=== PATIENT | female | born 1980 | race African-American/Black ===

== ENCOUNTER 2017-03-18 08:41 | Emergency (ER) | payer OTHER ==
[~2017-03-18] VITALS: Ht 165.1 cm; Wt 95.3 kg
--- NOTE | 2017-03-18 09:24 | RAD ---
2 view CXR: Clinical indications: Cough for one month especially at night when lying down. Cough is productive with trace of blood for one week. History of diabetes and hypertension.. Findings: Right lower lobe lung infiltrate is seen. The left lung field is clear. No pleural effusion or pneumothorax is seen. The heart size, pulmonary vasculature, mediastinum and both dennys are stable from October 18, 2011. The osseous structures appear intact. Impression: Right lower lobe pneumonia..
[2017-03-18] MEDS ORDERED: IV NORMAL SALINE 1000ML BAG 1,000 ML IV ONE (09:30)
[2017-03-18] MEDS ORDERED: LABETALOL HCL 200 MG TABLET PO STA (09:30)
[2017-03-18] MEDS ORDERED: ACETAMINOPHEN 500 MG TABLET PO ONE (09:30)
[2017-03-18] MEDS ORDERED: BENZONATATE 100 MG CAPSULE. PO STA (09:30)
[2017-03-18] MEDS ORDERED: AZITHRMYCN 500MG IVPB FOR OMNI 250 ML IV ONE (09:30)
[2017-03-18] MEDS ORDERED: IPRATRPIUM/ALBUTEROL 0.5/2.5MG 3 ML NEBU. NEB ONE (09:30)
[2017-03-18] MEDS ORDERED: LABETALOL 20 MG/4 ML DISP.SYRIN. IVP ONE (09:30)
--- NOTE | 2017-03-18 09:51 | PHYS DOC ---
Past Medical History Past Medical History: Diabetes-Type II, Hypertension Past Surgical History: , Tubal ligation, Other Additional Past Surgical Histo: rt ankle sx, x3 Alcohol Use: None Additional Information: "I did all that in my teens. I don't do anything anymore." Drug Use: None Adult General Chief Complaint Chief Complaint: COUGH HPI HPI This is a 36 year old female patient with history of hypertension and diabetes type 2 who presents today with a productive cough with yellow sputum for one month, nasal congestion, bilateral mild ear pain which began three days ago. Patient denies any history of smoking. She states she is supposed to take labetalol for her blood pressure but stopped taking it 2 or 3 days ago because of the cold symptoms. Patient states she's been taking [id number] decongestants including NyQuil. Patient denies any fever. Denies any chest pain. Review of Systems Review of Systems Constitutional: See history of present illness Eyes: Denies change in visual acuity, redness, or eye pain [] HENT: Nasal congestion bilateral ear pain Respiratory: Productive cough Cardiovascular: No additional information not addressed in HPI [] GI: Denies abdominal pain, nausea, vomiting, bloody stools or diarrhea [] : Denies dysuria or hematuria [] Musculoskeletal: Denies back pain or joint pain [] Integument: Denies rash or skin lesions [] Neurologic: Denies headache, focal weakness or sensory changes [] Endocrine: Denies polyuria or polydipsia [] Current Medications Current Medications Current Medications Medications (Trade) Dose Ordered Sig/Irma Start Time Stop Time Status Last Admin Dose Admin Acetaminophen (Tylenol) 1,000 mg 1X ONCE 03/18/17 09:30 03/18/17 09:44 DC 03/18/17 10:25 1,000 MG Albuterol/ Ipratropium (Duoneb) 3 ml 1X ONCE 03/18/17 09:30 03/18/17 09:44 DC 03/18/17 10:08 3 ML Azithromycin (Zithromax 500mg Ivpb For Omni) 250 ml @ 250 mls/hr 1X ONCE 03/18/17 09:30 03/18/17 10:29 DC 03/18/17 11:12 250 MLS/HR Benzonatate (Tessalon Perle) 100 mg 1X STAT 03/18/17 09:30 03/18/17 09:44 DC 03/18/17 10:25 100 MG Ceftriaxone Sodium 50 ml @ 100 mls/hr 1X ONCE 03/18/17 09:30 03/18/17 09:59 DC 03/18/17 10:24 100 MLS/HR Labetalol HCl (Normodyne) 40 mg 1X ONCE 03/18/17 09:30 03/18/17 09:44 DC 03/18/17 10:37 40 MG Labetalol HCl 200 mg 200 mg 1X STAT 03/18/17 09:30 03/18/17 09:44 DC 03/18/17 10:04 200 MG Ondansetron HCl (Zofran) 4 mg STK-MED ONCE 03/18/17 11:31 03/18/17 11:32 DC Potassium Chloride (KCl Oral Soln) 40 meq 1X ONCE 03/18/17 11:00 03/18/17 11:01 DC 03/18/17 11:22 40 MEQ Potassium Chloride (Klor-Con) 40 meq 1X ONCE 03/18/17 11:00 03/18/17 11:01 DC 03/18/17 11:21 40 MEQ Sodium Chloride (Iv Sodium Chloride 0.9% 1000ml Bag) 1,000 ml @ 1,000 mls/hr 1X ONCE 03/18/17 09:30 03/18/17 10:29 DC 03/18/17 10:22 1,000 MLS/HR Allergies Allergies Allergies Coded Allergies Type Severity Reaction Last Updated Verified No Known Drug Allergies 09/05/14 No Physical Exam Physical Exam Constitutional: Well developed, well nourished, no acute distress, non-toxic appearance. [] HENT: Normocephalic, atraumatic, bilateral external ears normal, oropharynx moist, no oral exudates, nose normal. [] Eyes: PERRLA, EOMI, conjunctiva normal, no discharge. [] Neck: Normal range of motion, no tenderness, supple, no stridor. [] Cardiovascular:Heart rate regular rhythm, no murmur [] Lungs & Thorax: diminished breath sounds to bilateral posterior lung bases Abdomen: Bowel sounds normal, soft, no tenderness, no masses, no pulsatile masses. [] Skin: Warm, dry, no erythema, no rash. [] Back: No tenderness, no CVA tenderness. [] Extremities: No tenderness, no cyanosis, no clubbing, ROM intact, no edema. [] Neurologic: Alert and oriented X 3, normal motor function, normal sensory function, no focal deficits noted. [] Psychologic: Affect normal, judgement normal, mood normal. [] Current Patient Data Vital Signs Vital Signs Date Time Temp Pulse Resp B/P Pulse Ox O2 Delivery O2 Flow Rate FiO2 03/18/17 10:37 113 202/121 03/18/17 09:55 95 Room Air 03/18/17 08:50 98.5 20 98.5 Lab Values Laboratory Tests Test 03/18/17 10:10 White Blood Count 14.0x10^3/uL (4.0-11.0) H Red Blood Count 4.83x10^6/uL (3.50-5.40) Hemoglobin 12.7g/dL (12.0-15.5) Hematocrit 38.5% (36.0-47.0) Mean Corpuscular Volume 80fL (79-100) Mean Corpuscular Hemoglobin 26pg (25-35) Mean Corpuscular Hemoglobin Concent 33g/dL (31-37) Red Cell Distribution Width 14.2% (11.5-14.5) Platelet Count 257x10^3/uL (140-400) Neutrophils (%) (Auto) 92% (31-73) H Lymphocytes (%) (Auto) 4% (24-48) L Monocytes (%) (Auto) 4% (0-9) Eosinophils (%) (Auto) 0% (0-3) Basophils (%) (Auto) 0% (0-3) Neutrophils # (Auto) 12.9x10^3uL (1.8-7.7) H Lymphocytes # (Auto) 0.5x10^3/uL (1.0-4.8) L Monocytes # (Auto) 0.5x10^3/uL (0.0-1.1) Eosinophils # (Auto) 0.0x10^3/uL (0.0-0.7) Basophils # (Auto) 0.0x10^3/uL (0.0-0.2) Segmented Neutrophils % 91% (35-66) H Lymphocytes % 4% (24-48) L Monocytes % 4% (0-10) Eosinophils % 1% (0-5) Platelet Estimate Adequate (ADEQUATE) Microcytosis Present Sodium Level 139mmol/L (136-145) Potassium Level 2.9mmol/L (3.5-5.1) *L Chloride Level 100mmol/L (98-107) Carbon Dioxide Level 30mmol/L (21-32) Anion Gap 9 (6-14) Blood Urea Nitrogen 20mg/dL (7-20) Creatinine 1.3mg/dL (0.6-1.0) H Estimated GFR (Cockcroft-Gault) 56.1 Glucose Level 175mg/dL (70-99) H Calcium Level 8.9mg/dL (8.5-10.1) Magnesium Level 1.5mg/dL (1.8-2.4) L Laboratory Tests 03/18/17 10:10 Laboratory Tests 03/18/17 10:10 EKG EKG [] Radiology/Procedures Radiology/Procedures []PROCEDURE: CHEST PA & LATERAL 2 view CXR: Clinical indications: Cough for one month especially at night when lying down. Cough is productive with trace of blood for one week. History of diabetes and hypertension.. Findings: Right lower lobe lung infiltrate is seen. The left lung field is clear. No pleural effusion or pneumothorax is seen. The heart size, pulmonary vasculature, mediastinum and both dennys are stable from October 18, 2011. The osseous structures appear intact. Impression: Right lower lobe pneumonia.. DICTATED and SIGNED BY: SAL LASSITER MD DATE: 03/18/17919 CC: KANDY HARRIS APRN ~ Course & Med Decision Making Course & Med Decision Making Pertinent Labs and Imaging studies reviewed. (See chart for details) Patient is in the ED with a productive cough, nasal congestion, bilateral ear pain. She states she has history of hypertension. The blood pressure in the ED is 222/133 with a heart rate in the 110s. She states she is supposed to be taking labetalol but she stopped taking 2-3 days ago. She was given labetalol 20 mg IV push followed by 200 mg by mouth. Chest x-ray positive for right lower lobe pneumonia. Patient is not hypoxic. Her O2 sats are at 98% on room air. CBC with a WBC of 14.0, BMP with potassium of 2.9 and creatinine of 1.3. Magnesium 1.5. Patient was given 40 mEq of liquid potassium and 40 mEq of tablet potassium. She was given IV fluids. She was also given a DuoNeb treatment in the ED. She feels better. She is afebrile. Her blood pressures come down to 160s over 80s. She was discharged with azithromycin, potassium, and Tussionex. She was encouraged to follow-up with her PCP in the course of next week. She was provided proper return precautions and discharged in stable condition. Dr. Bravo assisted in the care of patient. Salvatore Disclaimer Salvatore Disclaimer This electronic medical record was generated, in whole or in part, using a voice recognition dictation system. Departure Departure Impression: Primary Impression: Right lower lobe pneumonia Additional Impressions: Accelerated hypertension Hypokalemia Disposition: HOME, SELF-CARE Condition: STABLE Patient Instructions: Hypertension, Hypokalemia, Pneumonia, Adult Additional Instructions: Your chest x-ray shows a have community-acquired pneumonia. We gave you the first dose of antibiotic in the ED. Please ensure you complete the rest of the antibiotics. You also have low potassium. This could for multiple things including vomiting. Take the prescribed potassium tablets as written. Increase your dietary potassium intake through foods like bananas, sweet potatoes. Increase your fluid intake. Follow-up with your doctor next week. Come back to the ED symptoms worsen. Take your blood pressure medicines as prescribed. Scripts Potassium Chloride 20 Meq Tablet.er20 Meq PO DAILY #3 TAB.SR Prov:KANDY HARRIS APRN 03/18/17 Albuterol Sulfate (Proair Respiclick)90 Mcg Aer.pow.ba1 Puff IH PRN Q6HRS PRN SHORTNESS OF BREATH #1 INHALER Prov:KANDY HARRIS APRN 03/18/17 Guaifenesin/Codeine Phosphate (Codeine-Guaifen 10-100 mg/5 ml)120 Ml Liquid5 Ml PO BID PRN COUGH #80 LIQUID Prov:KANDY HARRIS APRN 03/18/17 Azithromycin (Zithromax)250 Mg [id number] Mg PO DAILY ANTI-BIOTIC #4 TAB Ref 0 Prov:KANDY HARRIS APRN 03/18/17 Problem Qualifiers Primary Impression: Right lower lobe pneumonia Pneumonia type: due to unspecified organism Qualified Code: J18.1 - Lobar pneumonia, unspecified organism KANDY HARRIS APRN Mar 18, 2017 09:51
[2017-03-18 10:32] LABS: BASO % 0 % (0-3); EOS % 0 % (0-3); HEMATOCRIT 38.5 % (36.0-47.0); HEMOGLOBIN 12.7 g/dL (12.0-15.5); LYMPH # 0.5 x10^3/uL (1.0-4.8); LYMPH % 4 % (24-48); MEAN CORPUSCULAR HEMOGLOBIN 26 pg (25-35); MEAN CORPUSCULAR HGB CONC 33 g/dL (31-37); MEAN CORPUSCULAR VOLUME 80 fL (79-100); MONO % 4 % (0-9); NEUT % 92 % (31-73); PLATELET COUNT 257 x10^3/uL (140-400); RED BLOOD COUNT 4.83 x10^6/uL (3.50-5.40); RED CELL DISTRIBUTION WIDTH 14.2 % (11.5-14.5)
[2017-03-18 10:37] VITALS: BP 202/121
[2017-03-18 10:49] LABS: CALCIUM 8.9 mg/dL (8.5-10.1); CREATININE 1.3 mg/dL (0.6-1.0); GFR 56.1
[2017-03-18 10:51] LABS: POTASSIUM 2.9 mmol/L (3.5-5.1)
[2017-03-18] MEDS ORDERED: POTASSIUM CHLORIDE 20 MEQ/15 ML ORAL LIQUID. PO ONE (11:00)
[2017-03-18] MEDS ORDERED: POTASSIUM CHLORIDE 20 MEQ TABLET.ER. PO ONE (11:00)
[2017-03-18] MEDS ORDERED: ONDANSETRON PF 4 MG/2 ML VIAL. IV ONE (11:30)
[2017-03-18] MEDS ORDERED: ONDANSETRON PF 4 MG/2 ML VIAL. ONE (11:31)
[2017-03-18 12:39] LABS: % EOS 1 % (0-5); MICROCYTOSIS PRESENT; PLT ESTIMATE ADEQUATE (ADEQUATE)
[2017-03-18] MEDS ORDERED: GUAI120L35 PO (13:05)
[2017-03-18] MEDS ORDERED: PROAIR RESPICL90 MCG IH (13:05)
[2017-03-18] MEDS ORDERED: POTA20TA82 PO (13:05)
[2017-03-18] MEDS ORDERED: AZIT250T PO (13:05)
== END 2017-03-18 13:17 | disposition home or self-care (01) ==
LOC: ER 08:41
DX: J18.1 Lobar pneumonia, unspecified organism (principal); H92.03 Otalgia, bilateral; E87.6 Hypokalemia; E11.9 Type 2 diabetes mellitus without complications; I10 Essential (primary) hypertension; Z98.51 Tubal ligation status
CPT/HCPCS: 36415; 71020; 80048; 83735; 85007; 85027; 87040; 94250; 94640; 96361; 96365; 96366; 96375; 99285; J0456; J0690; J2405; J3490; J7030; J7620

== ENCOUNTER 2017-03-19 17:28 | Inpatient (IN) | payer OTHER ==
[~2017-03-19] VITALS: Ht 167.6 cm; Wt 100.5 kg
[~2017-03-19 17:28] MED LIST: AZIT250T PO; GUAI120L35 PO; POTA20TA82 PO; PROAIR RESPICL90 MCG IH
[2017-03-19] MEDS ORDERED: IV NORMAL SALINE 1000ML BAG 1,000 ML IV SCH (17:51)
[2017-03-19] MEDS ORDERED: IPRATRPIUM/ALBUTEROL 0.5/2.5MG 3 ML NEBU. NEB ONE (18:00)
[2017-03-19 18:24] LABS: BASO % 0 % (0-3); EOS % 2 % (0-3); HEMATOCRIT 33.1 % (36.0-47.0); HEMOGLOBIN 10.9 g/dL (12.0-15.5); LYMPH % 10 % (24-48); MEAN CORPUSCULAR HEMOGLOBIN 27 pg (25-35); MEAN CORPUSCULAR HGB CONC 33 g/dL (31-37); MEAN CORPUSCULAR VOLUME 81 fL (79-100); MONO % 5 % (0-9); NEUT % 83 % (31-73); PLATELET COUNT 235 x10^3/uL (140-400); RED BLOOD COUNT 4.06 x10^6/uL (3.50-5.40); RED CELL DISTRIBUTION WIDTH 14.3 % (11.5-14.5); WHITE BLOOD COUNT 10.4 x10^3/uL (4.0-11.0)
[2017-03-19 18:36] LABS: CALCIUM 8.5 mg/dL (8.5-10.1); CREATININE 1.4 mg/dL (0.6-1.0); GFR 51.5; POTASSIUM 3.6 mmol/L (3.5-5.1)
[2017-03-19] MEDS ORDERED: LABETALOL 20 MG/4 ML DISP.SYRIN. IVP ONE (18:45)
[2017-03-19 18:51] LABS: ALBUMIN 2.8 g/dL (3.4-5.0); ALBUMIN/GLOBULIN RATIO 0.7 (1.0-1.7); TOTAL BILIRUBIN 0.4 mg/dL (0.2-1.0); TOTAL PROTEIN 6.7 g/dL (6.4-8.2)
--- NOTE | 2017-03-19 19:15 | PHYS DOC ---
Past Medical History Past Medical History: Diabetes-Type II, Hypertension Past Surgical History: , Tubal ligation, Other Additional Past Surgical Histo: rt ankle sx, x3 Alcohol Use: None Drug Use: None Adult General Chief Complaint Chief Complaint: SHORTNESS OF BREATH HPI HPI Patient is a 36 year old female who is brought to the ED by her parents with a complaint of shortness of air. The patient was seen here yesterday and diagnosed with pneumonia, she was given IV azithromycin and IV Rocephin, she was discharged with prescriptions. She did fill her prescriptions and has taken 2 doses of by mouth azithromycin since she was discharged. She said she was feeling fine and doing well until about 30 or 45 minutes prior to arrival, when she began to have a coughing spell, she couldn't stop coughing, and was coughing up some pinkish material. She then started becoming short of breath, she was not able to talk because she was so short of breath. She began to feel panicky and anxious. She became more short of breath when she ambulated to the vehicle. She had one episode of vomiting. Patient has no history of lung disease, she's never had pneumonia, denies asthma or other lung problems. She did have a flu shot when she was in 2016, has not had one since. She does have type 2 diabetes and hypertension. She sees Dr. De Los Santos for hypertension treatment. PCP Dr. Codi Gomes although she sees Dr. De Los Santos primarily for blood pressure. Review of Systems Review of Systems Constitutional: Denies fever or chills [] Eyes: Denies change in visual acuity, redness, or eye pain [] HENT: Denies nasal congestion or sore throat [] Respiratory: As in history of present illness Cardiovascular: Denies chest pain GI: Some nausea, one episode of vomiting : Denies dysuria or hematuria [] Musculoskeletal: Denies back pain or joint pain [] Integument: Denies rash or skin lesions [] Neurologic: Denies headache, focal weakness or sensory changes [] Current Medications Current Medications Current Medications Medications (Trade) Dose Ordered Sig/Irma Start Time Stop Time Status Last Admin Dose Admin Albuterol/ Ipratropium (Duoneb) 3 ml 1X ONCE 03/19/17 18:00 03/19/17 18:01 DC 03/19/17 18:00 3 ML Labetalol HCl (Normodyne) 20 mg 1X ONCE 03/19/17 18:45 03/19/17 18:46 DC 03/19/17 19:00 20 MG Sodium Chloride (Iv Sodium Chloride 0.9% 1000ml Bag) 1,000 ml @ 100 mls/hr Q10H 03/19/17 17:51 03/19/17 22:22 DC 03/19/17 17:51 100 MLS/HR Allergies Allergies Allergies Coded Allergies Type Severity Reaction Last Updated Verified codeine Allergy Intermediate 03/19/17 Yes Physical Exam Physical Exam Constitutional: Well developed, well nourished, mildly dyspneic, pulse ox on room air 85-86%, she is talking without difficulty HENT: Normocephalic, atraumatic, bilateral external ears normal, nose normal. [ ] Eyes: conjunctiva normal, no discharge. [] Neck: Normal range of motion, no stridor. [] Cardiovascular:Heart rate regular rhythm, no murmur [] Lungs & Thorax: No wheezes, right base with decreased breath sounds Abdomen: Bowel sounds normal, soft, no tenderness, no masses, no pulsatile masses. [] Skin: Warm, dry, no erythema, no rash. [] Extremities: No tenderness, no cyanosis, no clubbing, ROM intact, no edema. [] Neurologic: Alert and oriented X 3, normal motor function, normal sensory function, no focal deficits noted. [] Current Patient Data Vital Signs Vital Signs Date Time Temp Pulse Resp B/P Pulse Ox O2 Delivery O2 Flow Rate FiO2 03/19/17 19:00 90 198/128 03/19/17 18:35 20 98 Nasal Cannula 2 03/19/17 17:34 98.6 98.6 Lab Values Laboratory Tests Test 03/19/17 18:00 White Blood Count 10.4x10^3/uL (4.0-11.0) Red Blood Count 4.06x10^6/uL (3.50-5.40) Hemoglobin 10.9g/dL (12.0-15.5) L Hematocrit 33.1% (36.0-47.0) L Mean Corpuscular Volume 81fL (79-100) Mean Corpuscular Hemoglobin 27pg (25-35) Mean Corpuscular Hemoglobin Concent 33g/dL (31-37) Red Cell Distribution Width 14.3% (11.5-14.5) Platelet Count 235x10^3/uL (140-400) Neutrophils (%) (Auto) 83% (31-73) H Lymphocytes (%) (Auto) 10% (24-48) L Monocytes (%) (Auto) 5% (0-9) Eosinophils (%) (Auto) 2% (0-3) Basophils (%) (Auto) 0% (0-3) Neutrophils # (Auto) 8.6x10^3uL (1.8-7.7) H Lymphocytes # (Auto) 1.0x10^3/uL (1.0-4.8) Monocytes # (Auto) 0.5x10^3/uL (0.0-1.1) Eosinophils # (Auto) 0.2x10^3/uL (0.0-0.7) Basophils # (Auto) 0.0x10^3/uL (0.0-0.2) Sodium Level 138mmol/L (136-145) Potassium Level 3.6mmol/L (3.5-5.1) Chloride Level 105mmol/L (98-107) Carbon Dioxide Level 29mmol/L (21-32) Anion Gap 4 (6-14) L Blood Urea Nitrogen 21mg/dL (7-20) H Creatinine 1.4mg/dL (0.6-1.0) H Estimated GFR (Cockcroft-Gault) 51.5 BUN/Creatinine Ratio 15 (6-20) Glucose Level 170mg/dL (70-99) H Lactic Acid Level 1.7mmol/L (0.4-2.0) Calcium Level 8.5mg/dL (8.5-10.1) Total Bilirubin 0.4mg/dL (0.2-1.0) Aspartate Amino Transferase (AST) 16U/L (15-37) Alanine Aminotransferase (ALT) 19U/L (14-59) Alkaline Phosphatase 67U/L (46-116) Total Protein 6.7g/dL (6.4-8.2) Albumin 2.8g/dL (3.4-5.0) L Albumin/Globulin Ratio 0.7 (1.0-1.7) L Laboratory Tests 03/19/17 18:00 Laboratory Tests 03/19/17 18:00 EKG EKG [] Radiology/Procedures Radiology/Procedures One view portable chest x-ray read by me, compared to portable chest x-ray from yesterday. The right lower lobe infiltrate is more consolidated in appearance with an air bronchogram. Right lower lobe pneumonia. [] Course & Med Decision Making Course & Med Decision Making Pertinent Labs and Imaging studies reviewed. (See chart for details) 36-year-old female who was seen yesterday with community-acquired pneumonia, stable, was appropriately started on antibiotics and discharged to home, today developed dyspnea and returned. Pulse ox on room air 85-86%. She was started on oxygen 2 L and felt much better, her pulse ox improved to the mid 90s. She was given a DuoNeb. I discussed with the patient and her family that due to developing hypoxia she does need to be admitted to the hospital for oxygen, DuoNeb, IV antibiotics. She is a agreeable to that plan. I discussed with Dr. Esquivel, taking calls for Dr. Codi Gomes. He will admit the patient. We discussed broadening her coverage to cover possible pneumococcus but also continue to cover atypicals. I started her on IV Rocephin and IV azithromycin. Rechecked patient prior to her going to her room. She appears much more comfortable, able to talk without difficulty, on oxygen 2 L nasal cannula. [] Dragon Disclaimer Dragon Disclaimer This electronic medical record was generated, in whole or in part, using a voice recognition dictation system. Departure Departure Impression: Primary Impression: Right lower lobe pneumonia Additional Impression: Hypoxia Disposition: ADMITTED INPATIENT Admitting Physician: Jeffery Esquivel Condition: STABLE Referrals: CODI GOMES MD (PCP) Problem Qualifiers PALOMA TREVIZO MD Mar 19, 2017 19:15
[2017-03-19] MEDS ORDERED: DEXTROSE 50% 25 GM / 50ML DISP.SYRIN. IV PRN (19:30)
[2017-03-19] MEDS ORDERED: AZITHRMYCN 500MG IVPB FOR OMNI 250 ML IV ONE (19:30)
[2017-03-19] MEDS ORDERED: IPRATRPIUM/ALBUTEROL 0.5/2.5MG 3 ML NEBU. NEB SCH (20:00)
[2017-03-19 20:30] VITALS: BP 186/122
[2017-03-19 22:56] VITALS: BP 183/113
[2017-03-19] MEDS: guaiFENesin/CODEINE 100mg/10mg 5 ML LIQUID PO PRN (23:42)
[2017-03-19] MEDS: hydrALAZINE 20 MG/ML VIAL. IVP PRN (23:43)
[2017-03-20] MEDS ORDERED: ALBUTEROL SULFATE 2.5 MG/3 ML NEBU. NEB PRN (00:45)
[2017-03-20 03:00] VITALS: BP 197/114
[2017-03-20] MEDS: hydrALAZINE 20 MG/ML VIAL. IVP PRN ×2 (03:52→20:01)
[2017-03-20 07:00] VITALS: BP_SYST 202; BP_SYST 203; BP_SYST 205; BP_DIAS 123; BP_DIAS 130
[2017-03-20] MEDS: INSULIN ASPART 300 UNITS/3 ML INSULN.PEN SQ SCH ×4 (07:30→21:20)
[2017-03-20] MEDS ORDERED: INSULIN ASPART 300 UNITS/3 ML INSULN.PEN SQ SCH (08:00)
[2017-03-20] MEDS: IPRATRPIUM/ALBUTEROL 0.5/2.5MG 3 ML NEBU. NEB SCH ×4 (08:12→19:42)
--- NOTE | 2017-03-20 08:13 | RAD ---
Indication hypoxia. Difficulty breathing. A single view of the chest was obtained and is compared to a study one day earlier. There has been interval worsening. Consolidation in the right mid and lower lung field, compatible with pneumonia, has progressed. There is volume loss in the left mid and lower lung, new relative to the previous exam suggesting an additional area of pneumonia. There may be mild superimposed congestive heart failure. There are likely tiny pleural effusions. Heart size is slightly enlarged. IMPRESSION: Worsening pulmonary infiltrates. See above discussion
[2017-03-20] MEDS: AZITHROMYCIN 250 MG TABLET. PO SCH (08:42)
[2017-03-20] MEDS: ACETAMINOPHEN 325 MG TABLET. PO PRN ×3 (08:43→19:58)
[2017-03-20] MEDS: LABETALOL HCL 200 MG TABLET PO SCH ×3 (08:44→19:56)
[2017-03-20] MEDS: guaiFENesin/CODEINE 100mg/10mg 5 ML LIQUID PO PRN ×2 (09:27→19:58)
[2017-03-20 11:00] VITALS: BP 202/134
[2017-03-20] MEDS ORDERED: PROMETH/CODEINE 6.25/10MG 5 ML SYRUP. PO PRN (14:15)
[2017-03-20] MEDS ORDERED: ONDANSETRON PF 4 MG/2 ML VIAL. IV PRN (14:15)
--- NOTE | 2017-03-20 14:18 | PDOC1 ---
History and Physical Date of Admission Date of Admission 03/19/17 Identification/Chief Complaint Chief Complaint cough Problems: Source Source: Chart review, Patient History of Present Illness History of Present Illness 36yo F, obesity, quit smoking for 6years, comes for cough. She was in ER last week, was given po meds for PNA, comes back for worsening cough with sob. She has no fever, no h/o lung dz, has been coughing with mild mucus for 1 months , worse for 1 week, now with some yellow sputum, and hemoptysis sometime. kids are sick at home. CXR showed PNA. Past Medical History Cardiovascular: HTN Endocrine: Diabetes Past Surgical History Past Surgical History: Family History Family History: No Significant Social History Smoke: Quit ALCOHOL: occassional Drugs: None Current Problem List Problem List Problems Medical Problems: (1) Hypoxia Status: Acute (2) Right lower lobe pneumonia Status: Acute Current Medications Current Medications Current Medications Medications (Trade) Dose Ordered Sig/Irma Start Time Stop Time Status Last Admin Dose Admin Acetaminophen (Tylenol) 650 mg PRN Q6HRS PRN 03/20/17 08:45 03/20/17 08:43 650 MG Albuterol Sulfate (Ventolin Neb Soln) 2.5 mg PRN TID PRN 03/20/17 00:45 03/20/17 00:55 2.5 MG Albuterol/ Ipratropium (Duoneb) 3 ml RTQID 03/20/17 08:00 03/30/17 07:59 03/20/17 13:05 3 ML Azithromycin (Zithromax 500mg Ivpb For Omni) 250 ml @ 250 mls/hr 1X ONCE 03/19/17 19:30 03/19/17 20:29 DC Azithromycin (Zithromax) 250 mg DAILY 03/20/17 09:00 03/24/17 08:59 03/20/17 08:42 250 MG Ceftriaxone Sodium 2 gm/ Sodium Chloride 100 ml @ 200 mls/hr Q24H 03/20/17 21:00 Ceftriaxone Sodium/Sodium Chloride (Rocephin/Iv Sodium Chloride 0.9% 100ml) 100 ml @ 200 mls/hr 1X ONCE 03/19/17 19:30 03/19/17 19:59 DC 03/19/17 19:30 200 MLS/HR Dextrose 12.5 gm 12.5 gm PRN Q15MIN PRN 03/19/17 19:30 Guaifenesin/ Codeine Phosphate (Robitussin Ac) 5 ml PRN Q4HRS PRN 03/19/17 23:45 03/20/17 09:27 5 ML Hydralazine HCl (Apresoline) 10 mg PRN Q4HRS PRN 03/19/17 22:15 03/20/17 03:52 10 MG Insulin Aspart (Novolog) 0-9 UNITS TIDACHC 03/20/17 07:30 03/20/17 12:25 4 UNITS Labetalol HCl (Trandate) 200 mg TID 03/20/17 09:00 03/20/17 08:44 200 MG Labetalol HCl 20 mg 20 mg 1X ONCE 03/19/17 18:45 03/19/17 18:46 DC 03/19/17 19:00 20 MG Nifedipine (Procardia Xl) 60 mg DAILY 03/20/17 12:30 03/20/17 12:10 60 MG Sodium Chloride (Iv Sodium Chloride 0.9% 1000ml Bag) 1,000 ml @ 100 mls/hr Q10H 03/19/17 17:51 03/19/17 22:22 DC 03/19/17 17:51 100 MLS/HR Allergies Allergies Allergies Coded Allergies Type Severity Reaction Last Updated Verified No Known Drug Allergies 03/19/17 No ROS Review of System CONSTITUTIONAL: No fever or chills EYES: No recent changes SKIN: No rash or itching CARDIOVASCULAR: No chest pain, syncope, palpitations, or edema RESPIRATORY: No SOB or cough GASTROINTESTINAL: No nausea, vomiting or abdominal pain NEUROLOGICAL: No headaches or weakness ENDOCRINE: No cold or heat intolerance GENITOURINARY: No urgency or frequency of urination MUSCULOSKELETAL: No back pain or joint pain LYMPHATICS: No enlarged lymph nodes PSYCHIATRIC: No anxiety or depression Physical Exam Physical Exam GEN.: No apparent distress. Alert and oriented. HEENT: Head is normocephalic, atraumatic NECK: Supple. LUNGS: right side mild crackles HEART: RRR, S1, S2 present. Peripheral pulses intact ABDOMEN: Soft, nontender. Positive bowel sounds. EXTREMITIES: Without any cyanosis. NEUROLOGIC: Normal speech, normal tone PSYCHIATRIC: Normal affect, normal mood. SKIN: No ulcerations Vitals Vitals Vital Signs Date Time Temp Pulse Resp B/P Pulse Ox O2 Delivery O2 Flow Rate FiO2 03/20/17 13:05 98 Nasal Cannula 2.0 03/20/17 12:10 104 197/114 03/20/17 11:00 97.7 21 97.7 Labs Labs Laboratory Tests Test 03/19/17 18:00 03/19/17 20:57 03/20/17 08:15 03/20/17 12:18 White Blood Count 10.4x10^3/uL (4.0-11.0) Red Blood Count 4.06x10^6/uL (3.50-5.40) Hemoglobin 10.9g/dL (12.0-15.5) Hematocrit 33.1% (36.0-47.0) Mean Corpuscular Volume 81fL (79-100) Mean Corpuscular Hemoglobin 27pg (25-35) Mean Corpuscular Hemoglobin Concent 33g/dL (31-37) Red Cell Distribution Width 14.3% (11.5-14.5) Platelet Count 235x10^3/uL (140-400) Neutrophils (%) (Auto) 83% (31-73) Lymphocytes (%) (Auto) 10% (24-48) Monocytes (%) (Auto) 5% (0-9) Eosinophils (%) (Auto) 2% (0-3) Basophils (%) (Auto) 0% (0-3) Neutrophils # (Auto) 8.6x10^3uL (1.8-7.7) Lymphocytes # (Auto) 1.0x10^3/uL (1.0-4.8) Monocytes # (Auto) 0.5x10^3/uL (0.0-1.1) Eosinophils # (Auto) 0.2x10^3/uL (0.0-0.7) Basophils # (Auto) 0.0x10^3/uL (0.0-0.2) Sodium Level 138mmol/L (136-145) Potassium Level 3.6mmol/L (3.5-5.1) Chloride Level 105mmol/L (98-107) Carbon Dioxide Level 29mmol/L (21-32) Anion Gap 4 (6-14) Blood Urea Nitrogen 21mg/dL (7-20) Creatinine 1.4mg/dL (0.6-1.0) Estimated GFR (Cockcroft-Gault) 51.5 BUN/Creatinine Ratio 15 (6-20) Glucose Level 170mg/dL (70-99) Lactic Acid Level 1.7mmol/L (0.4-2.0) Calcium Level 8.5mg/dL (8.5-10.1) Total Bilirubin 0.4mg/dL (0.2-1.0) Aspartate Amino Transf (AST/SGOT) 16U/L (15-37) Alanine Aminotransferase (ALT/SGPT) 19U/L (14-59) Alkaline Phosphatase 67U/L (46-116) Total Protein 6.7g/dL (6.4-8.2) Albumin 2.8g/dL (3.4-5.0) Albumin/Globulin Ratio 0.7 (1.0-1.7) Glucose (Fingerstick) 184mg/dL (70-99) 142mg/dL (70-99) 160mg/dL (70-99) Laboratory Tests Test 03/19/17 18:00 03/19/17 20:57 03/20/17 08:15 03/20/17 12:18 White Blood Count 10.4x10^3/uL (4.0-11.0) Red Blood Count 4.06x10^6/uL (3.50-5.40) Hemoglobin 10.9g/dL (12.0-15.5) Hematocrit 33.1% (36.0-47.0) Mean Corpuscular Volume 81fL (79-100) Mean Corpuscular Hemoglobin 27pg (25-35) Mean Corpuscular Hemoglobin Concent 33g/dL (31-37) Red Cell Distribution Width 14.3% (11.5-14.5) Platelet Count 235x10^3/uL (140-400) Neutrophils (%) (Auto) 83% (31-73) Lymphocytes (%) (Auto) 10% (24-48) Monocytes (%) (Auto) 5% (0-9) Eosinophils (%) (Auto) 2% (0-3) Basophils (%) (Auto) 0% (0-3) Neutrophils # (Auto) 8.6x10^3uL (1.8-7.7) Lymphocytes # (Auto) 1.0x10^3/uL (1.0-4.8) Monocytes # (Auto) 0.5x10^3/uL (0.0-1.1) Eosinophils # (Auto) 0.2x10^3/uL (0.0-0.7) Basophils # (Auto) 0.0x10^3/uL (0.0-0.2) Sodium Level 138mmol/L (136-145) Potassium Level 3.6mmol/L (3.5-5.1) Chloride Level 105mmol/L (98-107) Carbon Dioxide Level 29mmol/L (21-32) Anion Gap 4 (6-14) Blood Urea Nitrogen 21mg/dL (7-20) Creatinine 1.4mg/dL (0.6-1.0) Estimated GFR (Cockcroft-Gault) 51.5 BUN/Creatinine Ratio 15 (6-20) Glucose Level 170mg/dL (70-99) Lactic Acid Level 1.7mmol/L (0.4-2.0) Calcium Level 8.5mg/dL (8.5-10.1) Total Bilirubin 0.4mg/dL (0.2-1.0) Aspartate Amino Transf (AST/SGOT) 16U/L (15-37) Alanine Aminotransferase (ALT/SGPT) 19U/L (14-59) Alkaline Phosphatase 67U/L (46-116) Total Protein 6.7g/dL (6.4-8.2) Albumin 2.8g/dL (3.4-5.0) Albumin/Globulin Ratio 0.7 (1.0-1.7) Glucose (Fingerstick) 184mg/dL (70-99) 142mg/dL (70-99) 160mg/dL (70-99) VTE Prophylaxis Ordered VTE Prophylaxis Devices: Yes VTE Pharmacological Prophylaxi: Yes Assessment/Plan Assessment/Plan 1. CAP 2. acute resp failure 3. dm2 4. htn urgency 5. obesity 6. previous smoker plan: 1. abx, ceftriaxone, aline check sputum cx, legi and strep urine Ag 2. on labetolol at home, add nifidipine as per dr. Bright as her previous HTN meds 3. ssi cough meds dvt ppx CHITRA PITTS MD March 20, 2017 14:18
[2017-03-20 15:00] VITALS: BP 169/109
[2017-03-20] MEDS: ENOXAPARIN 40 MG/0.4 ML SYRINGE. SQ SCH (15:52)
--- NOTE | 2017-03-20 17:22 | PDOC2 ---
CONSULT Date of Consult Date of Consult DATE: 03/20/17 TIME: 17:15 Reason for Consult Reason for Consult: Hypertension Referring Physician Referring Physician: Dr. Sullivan Identification/Chief Complaint Chief Complaint Hypertension History of Present Illness Reason for Visit: This patient is a very pleasant 36-year-old lady that has a long history of hypertension. I have followed her during her previous with the elevated blood pressure. She is still breast-feeding. I usually see the patient at the [facility]. The last time that I saw her I had her on labetalol 300 mg by mouth twice a day and Procardia XL 60 mg by mouth daily, presently she is on labetalol 200 mg by mouth 3 times a day. The patient comes in with fatigue and dizziness and having some headaches and then she was found to have an elevated blood pressure requiring admission. At the time that I saw her she denies having any chest pains or palpitations. I am not too sure about the compliance with the medications at this time especially having to take a pill 3 times a day and being a busy mother. Past Medical History Cardiovascular: HTN Endocrine: Diabetes Past Surgical History Past Surgical History: Family History Family History: No Significant Social History Quit ALCOHOL: occassional Drugs: None Current Problem List Problem List Problems Medical Problems: (1) Hypoxia Status: Acute (2) Right lower lobe pneumonia Status: Acute Current Medications Current Medications Current Medications Sodium Chloride (Iv Sodium Chloride 0.9% 1000ml Bag) 1,000 ml @ 100 mls/hr Q10H IV Last administered on 03/19/17 17:51; Start 03/19/17 at 17:51; Stop at 22:22; Status DC Albuterol/ Ipratropium (Duoneb) 3 ml 1X ONCE NEB Last administered on 18:00; Start 03/19/17 at 18:00; Stop 03/19/17 at 18:01; Status DC Labetalol HCl 20 mg 20 mg 1X ONCE IVP Last administered on 03/19/17 19:00; Start 03/19/17 at 18:45; Stop 03/19/17 at 18:46; Status DC Ceftriaxone Sodium 2 gm/ Sodium Chloride 100 ml @ 200 mls/hr Q24H IV ; Start at 21:00 Azithromycin (Zithromax 500mg Ivpb For Omni) 250 ml @ 250 mls/hr 1X ONCE IV ; Start 03/19/17 at 19:30; Stop 03/19/17 at 20:29; Status DC Albuterol/ Ipratropium (Duoneb) 3 ml RTQID NEB ; Start 03/19/17 at 20:00; Stop 03/20/17 at 00:37; Status DC Insulin Aspart (Novolog) 0-5 UNITS TIDWMEALS SQ ; Start 03/20/17 at 08:00; Status Cancel Dextrose 12.5 gm 12.5 gm PRN Q15MIN PRN IV SEE COMMENTS; Start 03/19/17 at 19: 30 Ceftriaxone Sodium/Sodium Chloride (Rocephin/Iv Sodium Chloride 0.9% 100ml) 100 ml @ 200 mls/hr 1X ONCE IV Last administered on 03/19/17 19:30; Start at 19:30; Stop 03/19/17 at 19:59; Status DC Hydralazine HCl (Apresoline) 10 mg PRN Q4HRS PRN IVP ELEVATED BP, SEE COMMENTS Last administered on 03/20/17 03:52; Start 03/19/17 at 22:15 Azithromycin (Zithromax) 250 mg DAILY PO Last administered on 03/20/17 08:42; Start 03/20/17 at 09:00; Stop 03/24/17 at 08:59 Insulin Aspart (Novolog) 0-9 UNITS TIDACHC SQ Last administered on 03/20/17 12: 25; Start 03/20/17 at 07:30 Guaifenesin/ Codeine Phosphate (Robitussin Ac) 5 ml PRN Q4HRS PRN PO COUGH Last administered on 03/20/17 09:27; Start 03/19/17 at 23:45 Labetalol HCl (Trandate) 200 mg TID PO Last administered on 03/20/17 14:34; Start 03/20/17 at 09:00 Albuterol/ Ipratropium (Duoneb) 3 ml RTQID NEB Last administered on 03/20/17 15 :50; Start 03/20/17 at 08:00; Stop 03/30/17 at 07:59 Albuterol Sulfate (Ventolin Neb Soln) 2.5 mg PRN TID PRN NEB pneumonia Last administered on 03/20/17 00:55; Start 03/20/17 at 00:45 Acetaminophen (Tylenol) 650 mg PRN Q6HRS PRN PO MILD PAIN / TEMP Last administered on 03/20/17 14:32; Start 03/20/17 at 08:45 Nifedipine (Procardia Xl) 60 mg DAILY PO Last administered on 03/20/17 12:10; Start 03/20/17 at 12:30 Guaifenesin (Mucinex) 600 mg BID PO Last administered on 03/20/17 15:51; Start 03/20/17 at 14:30 Promethazine HCl/ Codeine (Phenergan With Codeine) 5 ml PRN Q6HRS PRN PO COUGH ; Start 03/20/17 at 14:15 Ondansetron HCl (Zofran) 4 mg PRN Q6HRS PRN IV NAUSEA/VOMITING; Start 03/20/17 at 14:15 Enoxaparin Sodium (Lovenox 40mg Syringe) 40 mg Q24H SQ Last administered on 03/20 15:52; Start 03/20/17 at 15:00 Active Scripts Active Potassium Chloride 20 Meq Tablet.er 20 Meq PO DAILY Proair Respiclick (Albuterol Sulfate) 90 Mcg Aer.pow.ba 1 Puff IH PRN Q6HRS PRN Codeine-Guaifen 10-100 mg/5 ml (Guaifenesin/Codeine Phosphate) 120 Ml Liquid 5 Ml PO BID PRN Zithromax (Azithromycin) 250 Mg Tablet 250 Mg PO DAILY Allergies Allergies: Coded Allergies: No Known Drug Allergies (Unverified , 03/19/17) Physical Exam General: Alert, Oriented X3, Cooperative HEENT: PERRLA Lungs: Clear to auscultation, Normal air movement Heart: Regular rate, Normal S1, Normal S2, No murmurs Abdomen: Normal bowel sounds, Soft Extremities: No edema Psych/Mental Status: Mental status NL Vitals VITALS Vital Signs Date Time Temp Pulse Resp B/P Pulse Ox O2 Delivery O2 Flow Rate FiO2 03/20/17 15:51 98 Nasal Cannula 2.0 03/20/17 15:00 98.8 92 20 169/109 98.8 Labs Labs Laboratory Tests Test 03/19/17 18:00 03/19/17 20:57 03/20/17 08:15 03/20/17 12:18 White Blood Count 10.4x10^3/uL (4.0-11.0) Red Blood Count 4.06x10^6/uL (3.50-5.40) Hemoglobin 10.9g/dL (12.0-15.5) Hematocrit 33.1% (36.0-47.0) Mean Corpuscular Volume 81fL (79-100) Mean Corpuscular Hemoglobin 27pg (25-35) Mean Corpuscular Hemoglobin Concent 33g/dL (31-37) Red Cell Distribution Width 14.3% (11.5-14.5) Platelet Count 235x10^3/uL (140-400) Neutrophils (%) (Auto) 83% (31-73) Lymphocytes (%) (Auto) 10% (24-48) Monocytes (%) (Auto) 5% (0-9) Eosinophils (%) (Auto) 2% (0-3) Basophils (%) (Auto) 0% (0-3) Neutrophils # (Auto) 8.6x10^3uL (1.8-7.7) Lymphocytes # (Auto) 1.0x10^3/uL (1.0-4.8) Monocytes # (Auto) 0.5x10^3/uL (0.0-1.1) Eosinophils # (Auto) 0.2x10^3/uL (0.0-0.7) Basophils # (Auto) 0.0x10^3/uL (0.0-0.2) Sodium Level 138mmol/L (136-145) Potassium Level 3.6mmol/L (3.5-5.1) Chloride Level 105mmol/L (98-107) Carbon Dioxide Level 29mmol/L (21-32) Anion Gap 4 (6-14) Blood Urea Nitrogen 21mg/dL (7-20) Creatinine 1.4mg/dL (0.6-1.0) Estimated GFR (Cockcroft-Gault) 51.5 BUN/Creatinine Ratio 15 (6-20) Glucose Level 170mg/dL (70-99) Lactic Acid Level 1.7mmol/L (0.4-2.0) Calcium Level 8.5mg/dL (8.5-10.1) Total Bilirubin 0.4mg/dL (0.2-1.0) Aspartate Amino Transf (AST/SGOT) 16U/L (15-37) Alanine Aminotransferase (ALT/SGPT) 19U/L (14-59) Alkaline Phosphatase 67U/L (46-116) Total Protein 6.7g/dL (6.4-8.2) Albumin 2.8g/dL (3.4-5.0) Albumin/Globulin Ratio 0.7 (1.0-1.7) Glucose (Fingerstick) 184mg/dL (70-99) 142mg/dL (70-99) 160mg/dL (70-99) Test 03/20/17 15:26 Glucose (Fingerstick) 145mg/dL (70-99) Laboratory Tests Test 03/19/17 18:00 03/19/17 20:57 03/20/17 08:15 03/20/17 12:18 White Blood Count 10.4x10^3/uL (4.0-11.0) Red Blood Count 4.06x10^6/uL (3.50-5.40) Hemoglobin 10.9g/dL (12.0-15.5) Hematocrit 33.1% (36.0-47.0) Mean Corpuscular Volume 81fL (79-100) Mean Corpuscular Hemoglobin 27pg (25-35) Mean Corpuscular Hemoglobin Concent 33g/dL (31-37) Red Cell Distribution Width 14.3% (11.5-14.5) Platelet Count 235x10^3/uL (140-400) Neutrophils (%) (Auto) 83% (31-73) Lymphocytes (%) (Auto) 10% (24-48) Monocytes (%) (Auto) 5% (0-9) Eosinophils (%) (Auto) 2% (0-3) Basophils (%) (Auto) 0% (0-3) Neutrophils # (Auto) 8.6x10^3uL (1.8-7.7) Lymphocytes # (Auto) 1.0x10^3/uL (1.0-4.8) Monocytes # (Auto) 0.5x10^3/uL (0.0-1.1) Eosinophils # (Auto) 0.2x10^3/uL (0.0-0.7) Basophils # (Auto) 0.0x10^3/uL (0.0-0.2) Sodium Level 138mmol/L (136-145) Potassium Level 3.6mmol/L (3.5-5.1) Chloride Level 105mmol/L (98-107) Carbon Dioxide Level 29mmol/L (21-32) Anion Gap 4 (6-14) Blood Urea Nitrogen 21mg/dL (7-20) Creatinine 1.4mg/dL (0.6-1.0) Estimated GFR (Cockcroft-Gault) 51.5 BUN/Creatinine Ratio 15 (6-20) Glucose Level 170mg/dL (70-99) Lactic Acid Level 1.7mmol/L (0.4-2.0) Calcium Level 8.5mg/dL (8.5-10.1) Total Bilirubin 0.4mg/dL (0.2-1.0) Aspartate Amino Transf (AST/SGOT) 16U/L (15-37) Alanine Aminotransferase (ALT/SGPT) 19U/L (14-59) Alkaline Phosphatase 67U/L (46-116) Total Protein 6.7g/dL (6.4-8.2) Albumin 2.8g/dL (3.4-5.0) Albumin/Globulin Ratio 0.7 (1.0-1.7) Glucose (Fingerstick) 184mg/dL (70-99) 142mg/dL (70-99) 160mg/dL (70-99) Test 03/20/17 15:26 Glucose (Fingerstick) 145mg/dL (70-99) Assessment/Plan Assessment/Plan This patient comes in with uncontrolled hypertension. At this point I would like to change her medications to labetalol 300 mg by mouth twice a day and Procardia XL 60 mg by mouth daily. We will follow the blood pressure and see how she responds to this. Thank you very much for asking me to participate in the care of this patient XUAN IVERSON MD March 20, 2017 17:22
[2017-03-20 19:00] VITALS: BP 189/110
[2017-03-20 23:00] VITALS: BP 146/82
[2017-03-21 03:30] VITALS: BP 149/86
[2017-03-21] MEDS: ACETAMINOPHEN 325 MG TABLET. PO PRN ×3 (04:03→21:04)
[2017-03-21] MEDS: INSULIN ASPART 300 UNITS/3 ML INSULN.PEN SQ SCH ×4 (07:30→21:09)
[2017-03-21] MEDS: IPRATRPIUM/ALBUTEROL 0.5/2.5MG 3 ML NEBU. NEB SCH ×4 (07:31→20:00)
[2017-03-21 07:45] VITALS: BP 184/118
[2017-03-21] MEDS: AZITHROMYCIN 250 MG TABLET. PO SCH (07:52)
[2017-03-21] MEDS: LABETALOL HCL 200 MG TABLET PO SCH ×3 (07:53→21:04)
[2017-03-21 10:25] VITALS: BP_SYST 123; BP_SYST 149; BP_DIAS 83; BP_DIAS 91
[2017-03-21] MEDS ORDERED: traMADol 50 MG TABLET PO PRN (10:30)
[2017-03-21] MEDS ORDERED: LISINOPRIL 40 MG TABLET. PO SCH (11:00)
--- NOTE | 2017-03-21 13:57 | PDOC ---
PROGRESS NOTES Chief Complaint Chief Complaint 1. CAP 2. acute resp failure 3. dm2 4. htn urgency 5. obesity 6. previous smoker plan: 1. abx, ceftriaxone, aline check sputum cx, legi and strep urine Ag 2. on labetolol at home, add nifidipine as per dr. Bright 3. ssi cough meds dvt ppx add tramadol for pain, defer to card if need more HTN meds since pt still breast feeding her baby History of Present Illness History of Present Illness still high BP with headache cough slightly better Vitals Vitals Vital Signs Date Time Temp Pulse Resp B/P Pulse Ox O2 Delivery O2 Flow Rate FiO2 03/21/17 11:16 Nasal Cannula 3.0 03/21/17 11:00 95 149/91 03/21/17 10:25 98.8 18 96 98.8 Physical Exam General: Alert, Oriented X3, Cooperative Heart: Regular rate, Normal S1, Normal S2, No murmurs Abdomen: Normal bowel sounds, Soft Extremities: No edema Labs LABS Laboratory Tests Test 03/20/17 15:26 03/20/17 18:25 03/20/17 20:21 03/21/17 07:48 Glucose (Fingerstick) 145mg/dL (70-99) 233mg/dL (70-99) 139mg/dL (70-99) Urine Legionella Antigen Negative (Negative) Test 03/21/17 11:29 Glucose (Fingerstick) 173mg/dL (70-99) Review of Systems Review of Systems No fever, chills, sob or chest pain Assessment and Plan Assessmemt and Plan Problems Medical Problems: (1) Hypoxia Status: Acute (2) Right lower lobe pneumonia Status: Acute Problems: Comment Review of Relevant I have reviewed the following items abdulaziz (where applicable) has been applied. Labs Laboratory Tests Test 03/19/17 18:00 03/19/17 20:57 03/20/17 08:15 03/20/17 12:18 White Blood Count 10.4x10^3/uL (4.0-11.0) Red Blood Count 4.06x10^6/uL (3.50-5.40) Hemoglobin 10.9g/dL (12.0-15.5) Hematocrit 33.1% (36.0-47.0) Mean Corpuscular Volume 81fL (79-100) Mean Corpuscular Hemoglobin 27pg (25-35) Mean Corpuscular Hemoglobin Concent 33g/dL (31-37) Red Cell Distribution Width 14.3% (11.5-14.5) Platelet Count 235x10^3/uL (140-400) Neutrophils (%) (Auto) 83% (31-73) Lymphocytes (%) (Auto) 10% (24-48) Monocytes (%) (Auto) 5% (0-9) Eosinophils (%) (Auto) 2% (0-3) Basophils (%) (Auto) 0% (0-3) Neutrophils # (Auto) 8.6x10^3uL (1.8-7.7) Lymphocytes # (Auto) 1.0x10^3/uL (1.0-4.8) Monocytes # (Auto) 0.5x10^3/uL (0.0-1.1) Eosinophils # (Auto) 0.2x10^3/uL (0.0-0.7) Basophils # (Auto) 0.0x10^3/uL (0.0-0.2) Sodium Level 138mmol/L (136-145) Potassium Level 3.6mmol/L (3.5-5.1) Chloride Level 105mmol/L (98-107) Carbon Dioxide Level 29mmol/L (21-32) Anion Gap 4 (6-14) Blood Urea Nitrogen 21mg/dL (7-20) Creatinine 1.4mg/dL (0.6-1.0) Estimated GFR (Cockcroft-Gault) 51.5 BUN/Creatinine Ratio 15 (6-20) Glucose Level 170mg/dL (70-99) Lactic Acid Level 1.7mmol/L (0.4-2.0) Calcium Level 8.5mg/dL (8.5-10.1) Total Bilirubin 0.4mg/dL (0.2-1.0) Aspartate Amino Transf (AST/SGOT) 16U/L (15-37) Alanine Aminotransferase (ALT/SGPT) 19U/L (14-59) Alkaline Phosphatase 67U/L (46-116) Total Protein 6.7g/dL (6.4-8.2) Albumin 2.8g/dL (3.4-5.0) Albumin/Globulin Ratio 0.7 (1.0-1.7) Glucose (Fingerstick) 184mg/dL (70-99) 142mg/dL (70-99) 160mg/dL (70-99) Test 03/20/17 15:26 03/20/17 18:25 03/20/17 20:21 03/21/17 07:48 Glucose (Fingerstick) 145mg/dL (70-99) 233mg/dL (70-99) 139mg/dL (70-99) Urine Legionella Antigen Negative (Negative) Test 03/21/17 11:29 Glucose (Fingerstick) 173mg/dL (70-99) Laboratory Tests Test 03/20/17 15:26 03/20/17 18:25 03/20/17 20:21 03/21/17 07:48 Glucose (Fingerstick) 145mg/dL (70-99) 233mg/dL (70-99) 139mg/dL (70-99) Urine Legionella Antigen Negative (Negative) Test 03/21/17 11:29 Glucose (Fingerstick) 173mg/dL (70-99) Microbiology 03/19/17 Blood Culture - Preliminary, Resulted NO GROWTH AFTER 1 DAY 03/20/17 Gram Stain - Final, Complete Medications Current Medications Sodium Chloride (Iv Sodium Chloride 0.9% 1000ml Bag) 1,000 ml @ 100 mls/hr Q10H IV Last administered on 03/19/17 17:51; Start 03/19/17 at 17:51; Stop at 22:22; Status DC Albuterol/ Ipratropium (Duoneb) 3 ml 1X ONCE NEB Last administered on 18:00; Start 03/19/17 at 18:00; Stop 03/19/17 at 18:01; Status DC Labetalol HCl 20 mg 20 mg 1X ONCE IVP Last administered on 03/19/17 19:00; Start 03/19/17 at 18:45; Stop 03/19/17 at 18:46; Status DC Ceftriaxone Sodium 2 gm/ Sodium Chloride 100 ml @ 200 mls/hr Q24H IV Last administered on 03/20/17 19:55; Start 03/20/17 at 21:00 Azithromycin (Zithromax 500mg Ivpb For Omni) 250 ml @ 250 mls/hr 1X ONCE IV ; Start 03/19/17 at 19:30; Stop 03/19/17 at 20:29; Status DC Albuterol/ Ipratropium (Duoneb) 3 ml RTQID NEB ; Start 03/19/17 at 20:00; Stop 03/20/17 at 00:37; Status DC Insulin Aspart (Novolog) 0-5 UNITS TIDWMEALS SQ ; Start 03/20/17 at 08:00; Status Cancel Dextrose 12.5 gm 12.5 gm PRN Q15MIN PRN IV SEE COMMENTS; Start 03/19/17 at 19: 30 Ceftriaxone Sodium/Sodium Chloride (Rocephin/Iv Sodium Chloride 0.9% 100ml) 100 ml @ 200 mls/hr 1X ONCE IV Last administered on 03/19/17 19:30; Start at 19:30; Stop 03/19/17 at 19:59; Status DC Hydralazine HCl (Apresoline) 10 mg PRN Q4HRS PRN IVP ELEVATED BP, SEE COMMENTS Last administered on 03/20/17 20:01; Start 03/19/17 at 22:15 Azithromycin (Zithromax) 250 mg DAILY PO Last administered on 03/21/17 07:52; Start 03/20/17 at 09:00; Stop 03/24/17 at 08:59 Insulin Aspart (Novolog) 0-9 UNITS TIDACHC SQ Last administered on 03/21/17 12: 04; Start 03/20/17 at 07:30 Guaifenesin/ Codeine Phosphate (Robitussin Ac) 5 ml PRN Q4HRS PRN PO COUGH Last administered on 03/20/17 19:58; Start 03/19/17 at 23:45 Labetalol HCl (Trandate) 200 mg TID PO Last administered on 03/21/17 07:53; Start 03/20/17 at 09:00 Albuterol/ Ipratropium (Duoneb) 3 ml RTQID NEB Last administered on 03/21/17 11 :14; Start 03/20/17 at 08:00; Stop 03/30/17 at 07:59 Albuterol Sulfate (Ventolin Neb Soln) 2.5 mg PRN TID PRN NEB pneumonia Last administered on 03/20/17 00:55; Start 03/20/17 at 00:45 Acetaminophen (Tylenol) 650 mg PRN Q6HRS PRN PO MILD PAIN / TEMP Last administered on 03/21/17 07:54; Start 03/20/17 at 08:45; Stop 03/21/17 at 09:30; Status DC Nifedipine (Procardia Xl) 60 mg DAILY PO Last administered on 03/21/17 07:52; Start 03/20/17 at 12:30 Guaifenesin (Mucinex) 600 mg BID PO Last administered on 03/21/17 07:53; Start 03/20/17 at 14:30 Promethazine HCl/ Codeine (Phenergan With Codeine) 5 ml PRN Q6HRS PRN PO COUGH Last administered on 03/21/17 07:53; Start 03/20/17 at 14:15 Ondansetron HCl (Zofran) 4 mg PRN Q6HRS PRN IV NAUSEA/VOMITING; Start 03/20/17 at 14:15 Enoxaparin Sodium (Lovenox 40mg Syringe) 40 mg Q24H SQ Last administered on 03/20 15:52; Start 03/20/17 at 15:00 Acetaminophen (Tylenol) 650 mg PRN Q4HRS PRN PO MILD PAIN / TEMP; Start at 09:28 Lisinopril (Prinivil) 40 mg DAILY PO ; Start 03/21/17 at 11:00; Stop 03/21/17 at 11:30; Status DC Tramadol HCl (Ultram) 50 mg PRN Q6HRS PRN PO PAIN; Start 03/21/17 at 10:30 Active Scripts Active Potassium Chloride 20 Meq Tablet.er 20 Meq PO DAILY Proair Respiclick (Albuterol Sulfate) 90 Mcg Aer.pow.ba 1 Puff IH PRN Q6HRS PRN Codeine-Guaifen 10-100 mg/5 ml (Guaifenesin/Codeine Phosphate) 120 Ml Liquid 5 Ml PO BID PRN Zithromax (Azithromycin) 250 Mg Tablet 250 Mg PO DAILY Vitals/I & O Vital Sign - Last 24 Hours 03/20/17 03/20/17 03/20/171/17 14:34 15:00 15:51 19:00 Temp 98.8 97.7 98.8 97.7 Pulse 101 92 100 Resp 20 20 B/P 192/136 169/109 189/110 Pulse Ox 97 98 97 O2 Delivery Nasal Cannula Nasal Cannula Nasal Cannula O2 Flow Rate 2.0 2.0 03/20/17 03/20/17 03/20/17 03/20/17 19:43 19:56 20:00 20:01 Pulse 100 100 B/P 189/110 189/110 Pulse Ox 99 O2 Delivery Nasal Cannula Nasal Cannula O2 Flow Rate 2.0 3.0 03/20/17 03/21/17 03/21/17 03/21/17 23:00 03:30 07:31 07:45 Temp 98.8 98.1 98.4 98.8 98.1 98.4 Pulse 109 100 103 Resp 20 20 18 B/P 146/82 149/86 184/118 Pulse Ox 97 97 90 100 O2 Delivery Nasal Cannula Nasal Cannula Nasal Cannula Nasal Cannula O2 Flow Rate 2.0 2.0 03/21/17 03/21/17 03/21/17 03/21/17 07:52 07:53 08:00 10:25 Temp 98.8 98.8 Pulse 13 103 95 Resp 18 B/P 184/118 184/118 149/91 Pulse Ox 96 O2 Delivery Nasal Cannula Nasal Cannula O2 Flow Rate 3.0 2.0 03/21/17 03/21/17 11:00 11:16 Pulse 95 B/P 149/91 O2 Delivery Nasal Cannula O2 Flow Rate 3.0 Intake and Output 03/20/17 03/20/17 03/21/17 15:00 23:00 07:00 Intake Total 450 ml 1550 ml 1160 ml Balance 450 ml 1550 ml 1160 ml CHITRA PITTS MD March 21, 2017 13:57
[2017-03-21 14:30] VITALS: BP 166/104
[2017-03-21] MEDS: ENOXAPARIN 40 MG/0.4 ML SYRINGE. SQ SCH (15:09)
--- NOTE | 2017-03-21 17:52 | PDOC ---
PROGRESS NOTES Subjective Subjective Patient feels better today. Her blood pressure is not normal but has improved from admission. Objective Objective Vital Signs Date Time Temp Pulse Resp B/P Pulse Ox O2 Delivery O2 Flow Rate FiO2 03/21/17 16:13 Nasal Cannula 3.0 03/21/17 14:30 99.5 102 18 166/104 100 99.5 Intake and Output 03/21/17 07:00 Intake Total 3160 ml Balance 3160 ml Intake Oral 3060 ml IV Total 100 ml # Voids 4 Physical Exam Physical Exam No significant changes in cardiac exam Assessment Assessment Patient's hypertension is improving. Need to continue with the by mouth medications and if the blood pressure is better controlled she may be able to go home tomorrow from a cardiac standpoint. Problems Medical Problems: (1) Hypoxia Status: Acute (2) Right lower lobe pneumonia Status: Acute Comment Review of Relevant I have reviewed the following items abdulaziz (where applicable) has been applied. Labs Laboratory Tests Test 03/19/17 18:00 03/19/17 20:57 03/20/17 08:15 03/20/17 12:18 White Blood Count 10.4x10^3/uL (4.0-11.0) Red Blood Count 4.06x10^6/uL (3.50-5.40) Hemoglobin 10.9g/dL (12.0-15.5) Hematocrit 33.1% (36.0-47.0) Mean Corpuscular Volume 81fL (79-100) Mean Corpuscular Hemoglobin 27pg (25-35) Mean Corpuscular Hemoglobin Concent 33g/dL (31-37) Red Cell Distribution Width 14.3% (11.5-14.5) Platelet Count 235x10^3/uL (140-400) Neutrophils (%) (Auto) 83% (31-73) Lymphocytes (%) (Auto) 10% (24-48) Monocytes (%) (Auto) 5% (0-9) Eosinophils (%) (Auto) 2% (0-3) Basophils (%) (Auto) 0% (0-3) Neutrophils # (Auto) 8.6x10^3uL (1.8-7.7) Lymphocytes # (Auto) 1.0x10^3/uL (1.0-4.8) Monocytes # (Auto) 0.5x10^3/uL (0.0-1.1) Eosinophils # (Auto) 0.2x10^3/uL (0.0-0.7) Basophils # (Auto) 0.0x10^3/uL (0.0-0.2) Sodium Level 138mmol/L (136-145) Potassium Level 3.6mmol/L (3.5-5.1) Chloride Level 105mmol/L (98-107) Carbon Dioxide Level 29mmol/L (21-32) Anion Gap 4 (6-14) Blood Urea Nitrogen 21mg/dL (7-20) Creatinine 1.4mg/dL (0.6-1.0) Estimated GFR (Cockcroft-Gault) 51.5 BUN/Creatinine Ratio 15 (6-20) Glucose Level 170mg/dL (70-99) Lactic Acid Level 1.7mmol/L (0.4-2.0) Calcium Level 8.5mg/dL (8.5-10.1) Total Bilirubin 0.4mg/dL (0.2-1.0) Aspartate Amino Transf (AST/SGOT) 16U/L (15-37) Alanine Aminotransferase (ALT/SGPT) 19U/L (14-59) Alkaline Phosphatase 67U/L (46-116) Total Protein 6.7g/dL (6.4-8.2) Albumin 2.8g/dL (3.4-5.0) Albumin/Globulin Ratio 0.7 (1.0-1.7) Glucose (Fingerstick) 184mg/dL (70-99) 142mg/dL (70-99) 160mg/dL (70-99) Test 03/20/17 15:26 03/20/17 18:25 03/20/17 20:21 03/21/17 07:48 Glucose (Fingerstick) 145mg/dL (70-99) 233mg/dL (70-99) 139mg/dL (70-99) Urine Legionella Antigen Negative (Negative) Test 03/21/17 11:29 03/21/17 16:25 Glucose (Fingerstick) 173mg/dL (70-99) 203mg/dL (70-99) Laboratory Tests Test 03/20/17 18:25 03/20/17 20:21 03/21/17 07:48 03/21/17 11:29 Urine Legionella Antigen Negative (Negative) Glucose (Fingerstick) 233mg/dL (70-99) 139mg/dL (70-99) 173mg/dL (70-99) Test 03/21/17 16:25 Glucose (Fingerstick) 203mg/dL (70-99) Microbiology 03/19/17 Blood Culture - Preliminary, Resulted NO GROWTH AFTER 1 DAY 03/20/17 Gram Stain - Final, Complete Medications Current Medications Sodium Chloride (Iv Sodium Chloride 0.9% 1000ml Bag) 1,000 ml @ 100 mls/hr Q10H IV Last administered on 03/19/17 17:51; Start 03/19/17 at 17:51; Stop at 22:22; Status DC Albuterol/ Ipratropium (Duoneb) 3 ml 1X ONCE NEB Last administered on 18:00; Start 03/19/17 at 18:00; Stop 03/19/17 at 18:01; Status DC Labetalol HCl 20 mg 20 mg 1X ONCE IVP Last administered on 03/19/17 19:00; Start 03/19/17 at 18:45; Stop 03/19/17 at 18:46; Status DC Ceftriaxone Sodium 2 gm/ Sodium Chloride 100 ml @ 200 mls/hr Q24H IV Last administered on 03/20/17 19:55; Start 03/20/17 at 21:00 Azithromycin (Zithromax 500mg Ivpb For Omni) 250 ml @ 250 mls/hr 1X ONCE IV ; Start 03/19/17 at 19:30; Stop 03/19/17 at 20:29; Status DC Albuterol/ Ipratropium (Duoneb) 3 ml RTQID NEB ; Start 03/19/17 at 20:00; Stop 03/20/17 at 00:37; Status DC Insulin Aspart (Novolog) 0-5 UNITS TIDWMEALS SQ ; Start 03/20/17 at 08:00; Status Cancel Dextrose 12.5 gm 12.5 gm PRN Q15MIN PRN IV SEE COMMENTS; Start 03/19/17 at 19: 30 Ceftriaxone Sodium/Sodium Chloride (Rocephin/Iv Sodium Chloride 0.9% 100ml) 100 ml @ 200 mls/hr 1X ONCE IV Last administered on 03/19/17 19:30; Start at 19:30; Stop 03/19/17 at 19:59; Status DC Hydralazine HCl (Apresoline) 10 mg PRN Q4HRS PRN IVP ELEVATED BP, SEE COMMENTS Last administered on 03/20/17 20:01; Start 03/19/17 at 22:15 Azithromycin (Zithromax) 250 mg DAILY PO Last administered on 03/21/17 07:52; Start 03/20/17 at 09:00; Stop 03/24/17 at 08:59 Insulin Aspart (Novolog) 0-9 UNITS TIDACHC SQ Last administered on 03/21/17 16: 54; Start 03/20/17 at 07:30 Guaifenesin/ Codeine Phosphate (Robitussin Ac) 5 ml PRN Q4HRS PRN PO COUGH Last administered on 03/20/17 19:58; Start 03/19/17 at 23:45 Labetalol HCl (Trandate) 200 mg TID PO Last administered on 03/21/17 14:01; Start 03/20/17 at 09:00 Albuterol/ Ipratropium (Duoneb) 3 ml RTQID NEB Last administered on 03/21/17 16 :13; Start 03/20/17 at 08:00; Stop 03/30/17 at 07:59 Albuterol Sulfate (Ventolin Neb Soln) 2.5 mg PRN TID PRN NEB pneumonia Last administered on 03/20/17 00:55; Start 03/20/17 at 00:45 Acetaminophen (Tylenol) 650 mg PRN Q6HRS PRN PO MILD PAIN / TEMP Last administered on 03/21/17 07:54; Start 03/20/17 at 08:45; Stop 03/21/17 at 09:30; Status DC Nifedipine (Procardia Xl) 60 mg DAILY PO Last administered on 03/21/17 07:52; Start 03/20/17 at 12:30 Guaifenesin (Mucinex) 600 mg BID PO Last administered on 03/21/17 07:53; Start 03/20/17 at 14:30 Promethazine HCl/ Codeine (Phenergan With Codeine) 5 ml PRN Q6HRS PRN PO COUGH Last administered on 03/21/17 07:53; Start 03/20/17 at 14:15 Ondansetron HCl (Zofran) 4 mg PRN Q6HRS PRN IV NAUSEA/VOMITING; Start 03/20/17 at 14:15 Enoxaparin Sodium (Lovenox 40mg Syringe) 40 mg Q24H SQ Last administered on 03/21 15:09; Start 03/20/17 at 15:00 Acetaminophen (Tylenol) 650 mg PRN Q4HRS PRN PO MILD PAIN / TEMP; Start at 09:28 Lisinopril (Prinivil) 40 mg DAILY PO ; Start 03/21/17 at 11:00; Stop 03/21/17 at 11:30; Status DC Tramadol HCl (Ultram) 50 mg PRN Q6HRS PRN PO PAIN; Start 03/21/17 at 10:30 Active Scripts Active Potassium Chloride 20 Meq Tablet.er 20 Meq PO DAILY Proair Respiclick (Albuterol Sulfate) 90 Mcg Aer.pow.ba 1 Puff IH PRN Q6HRS PRN Codeine-Guaifen 10-100 mg/5 ml (Guaifenesin/Codeine Phosphate) 120 Ml Liquid 5 Ml PO BID PRN Zithromax (Azithromycin) 250 Mg Tablet 250 Mg PO DAILY Vitals/I & O Vital Sign - Last 24 Hours 03/20/17 03/20/17 03/20/17 03/20/17 19:00 19:43 19:56 20:00 Temp 97.7 97.7 Pulse 100 100 Resp 20 B/P 189/110 189/110 Pulse Ox 97 99 O2 Delivery Nasal Cannula Nasal Cannula Nasal Cannula O2 Flow Rate 2.0 3.0 03/20/17 03/20/17 03/21/17 03/21/17 20:01 23:00 03:30 07:31 Temp 98.8 98.1 98.8 98.1 Pulse 100 109 100 Resp 20 20 B/P 189/110 146/82 149/86 Pulse Ox 97 97 90 O2 Delivery Nasal Cannula Nasal Cannula Nasal Cannula O2 Flow Rate 2.0 03/21/17 03/21/17 03/21/17 03/21/17 07:45 07:52 07:53 08:00 Temp 98.4 98.4 Pulse 103 13 103 Resp 18 B/P 184/118 184/118 184/118 Pulse Ox 100 O2 Delivery Nasal Cannula Nasal Cannula O2 Flow Rate 2.0 3.0 03/21/17 03/21/17 03/21/17 03/21/17 10:25 11:00 11:16 14:01 Temp 98.8 98.8 Pulse 95 95 95 Resp 18 B/P 149/91 149/91 149/91 Pulse Ox 96 O2 Delivery Nasal Cannula Nasal Cannula O2 Flow Rate 2.0 3.0 03/21/17 03/21/17 14:30 16:13 Temp 99.5 99.5 Pulse 102 Resp 18 B/P 166/104 Pulse Ox 100 O2 Delivery Nasal Cannula Nasal Cannula O2 Flow Rate 2.0 3.0 Intake and Output 03/20/17 03/20/17 03/21/17 15:00 23:00 07:00 Intake Total 450 ml 1550 ml 1160 ml Balance 450 ml 1550 ml 1160 ml XUAN IVERSON MD March 21, 2017 17:52
[2017-03-21 19:00] VITALS: BP 175/111
[2017-03-21] MEDS: hydrALAZINE 20 MG/ML VIAL. IVP PRN (21:00)
[2017-03-21 23:00] VITALS: BP 119/77
[2017-03-22 03:00] VITALS: BP 150/87
[2017-03-22] MEDS: ACETAMINOPHEN 325 MG TABLET. PO PRN (03:17)
[2017-03-22 04:26] LABS: CALCIUM 8.9 mg/dL (8.5-10.1); CREATININE 1.3 mg/dL (0.6-1.0); GFR 56.1; POTASSIUM 3.5 mmol/L (3.5-5.1)
[2017-03-22 04:28] LABS: BASO % 0 % (0-3); EOS % 5 % (0-3); HEMATOCRIT 35.5 % (36.0-47.0); HEMOGLOBIN 11.9 g/dL (12.0-15.5); LYMPH # 1.4 x10^3/uL (1.0-4.8); LYMPH % 20 % (24-48); MEAN CORPUSCULAR HEMOGLOBIN 27 pg (25-35); MEAN CORPUSCULAR HGB CONC 34 g/dL (31-37); MEAN CORPUSCULAR VOLUME 81 fL (79-100); MONO % 5 % (0-9); NEUT % 71 % (31-73); PLATELET COUNT 317 x10^3/uL (140-400); RED BLOOD COUNT 4.39 x10^6/uL (3.50-5.40); RED CELL DISTRIBUTION WIDTH 14.2 % (11.5-14.5); WHITE BLOOD COUNT 6.9 x10^3/uL (4.0-11.0)
[2017-03-22 07:00] VITALS: BP 172/101
[2017-03-22] MEDS: INSULIN ASPART 300 UNITS/3 ML INSULN.PEN SQ SCH ×2 (07:30→12:30)
[2017-03-22] MEDS: IPRATRPIUM/ALBUTEROL 0.5/2.5MG 3 ML NEBU. NEB SCH (07:33)
[2017-03-22] MEDS: LABETALOL HCL 200 MG TABLET PO SCH (07:53)
[2017-03-22] MEDS: AZITHROMYCIN 250 MG TABLET. PO SCH (07:53)
[2017-03-22 11:00] VITALS: BP 136/57
[2017-03-22] MEDS ORDERED: NIFE30TA17 PO (11:51)
[2017-03-22] MEDS ORDERED: AZIT250T6 PO (11:51)
[2017-03-22] MEDS ORDERED: AMOX1TAB11 PO (11:51)
[2017-03-22] MEDS ORDERED: LABE200T2 PO (11:51)
[2017-03-22] MEDS ORDERED: GUAI600T38 PO (11:51)
--- NOTE | 2017-03-22 12:46 | PDOC3 ---
Discharge Summary [facility] Date of Admission: Mar 19, 2017 Discharge Date: March 22, 2017 Admitting Diagnosis 1. CAP 2. acute resp failure 3. dm2 4. htn urgency 5. obesity 6. previous smoker Problems: Final Diagnosis CONSULTS card Brief Hospital Course 36yo F, obesity, quit smoking for 6years, comes for cough. She was in ER last week, was given po meds for PNA, comes back for worsening cough with sob. She has no fever, no h/o lung dz, has been coughing with mild mucus for 1 months , worse for 1 week, now with some yellow sputum, and hemoptysis sometime. kids are sick at home. CXR showed PNA. pt not checking her BP at home, was found BP >200 in hosp, resumed labetolol and add nifedipine. Need O2 3L at the beginning, now much better, no o2 needed. dc home with abx x 7d, labetolol and nifedipine. dc time 35min. General: Alert, Oriented X3, Cooperative Heart: Regular rate, Normal S1, Normal S2, No murmurs Abdomen: Normal bowel sounds, Soft Extremities: No edema Patient History: Patient reports no known family medical history. Problems: Disposition home CONDITION AT DISCHARGE: Improved Diet low salt Scheduled Amoxicillin/Potassium Clav (Amox Tr-K Clv 875-125 Mg Tab) 1 TAB PO BID Azithromycin (Azithromycin Tablet) 250 MG PO DAILY Guaifenesin (Mucinex) 600 MG PO BID Labetalol Hcl (Labetalol Hcl) 300 MG PO BID Nifedipine (Nifedipine Er) 60 MG PO DAILY Scheduled PRN Albuterol Sulfate (Proair Respiclick) 1 PUFF IH PRN Q6HRS PRN PRN SHORTNESS OF BREATH Discontinued Medications Azithromycin (Zithromax) 250 MG PO DAILY Guaifenesin/Codeine Phosphate (Codeine-Guaifen 10-100 mg/5 ml) 5 ML PO BID PRN PRN COUGH Potassium Chloride (Potassium Chloride) 20 MEQ PO DAILY Follow Up pcp in 2 weeks CHITRA PITTS MD March 22, 2017 12:46
[2017-03-22] MEDS: ENOXAPARIN 40 MG/0.4 ML SYRINGE. SQ SCH (15:00)
[2017-03-22] MEDS ORDERED: LABETALOL HCL 200 MG TABLET PO SCH (21:00)
[2017-03-22] MEDS ORDERED: AMOXICILLIN/K CLAV 875/125MG TABLET. PO SCH (21:00)
[2017-03-23 10:23] LABS: SPECIMEN SOURCE Urine (.)
== END 2017-03-22 12:30 | disposition home or self-care (01) | DRG 682 ==
LOC: ER 17:28 → 5 NORTH 19:18
PROVIDERS: ADMIT Internal Medicine; ATTEND Internal Medicine
DX: I12.9 Hypertensive chronic kidney disease with stage 1 through stage 4 chronic kidney disease, or unspecified chronic kidney disease (principal); J18.9 Pneumonia, unspecified organism; J96.01 Acute respiratory failure with hypoxia; I16.0 Hypertensive urgency; E11.9 Type 2 diabetes mellitus without complications; E66.9 Obesity, unspecified; Z87.891 Personal history of nicotine dependence; Z98.51 Tubal ligation status; Z88.5 Allergy status to narcotic agent; Z68.35 Body mass index [BMI] 35.0-35.9, adult; N18.3 Chronic kidney disease, stage 3 (moderate)
CPT/HCPCS: 36415; 71010; 80048; 80053; 82947; 83605; 85027; 87040; 87070; 87205; 87449; 94250; 94640; 94760; 96374; 96375; J0360; J0696; J1650; J1815; J3490; J7030; J7620; Q0144; 99285-25

== ENCOUNTER → 2017-06-20 | Outpatient (CLI) | payer BC, OTHER ==
[~2017-06-20] MED LIST changes: +AMOX1TAB11 PO; +AZIT250T6 PO; +GUAI600T47 PO; +LABE200T2 PO; +NIFE30TA17 PO
--- NOTE | 2017-06-20 10:59 | KCIC ---
INDICATION: Dyspnea for 2 to 3 weeks. TECHNIQUE: Two-view chest radiograph was obtained. No comparison is available. FINDINGS: Streaky left perihilar opacity is noted. The lungs otherwise are clear. There is no pleural effusion. Heart is upper limits of normal in size. Bony structures are intact. IMPRESSION: Streaky left perihilar opacity, may represent perihilar infiltrate. Short-term follow-up can be considered. Electronically signed by: Slade Young MD (06/20/2017 10:56 AM) [facility]-[id number]
== END | disposition home or self-care (01) ==
LOC: KCIC 10:23
PROVIDERS: ATTEND Family Medicine
DX: R06.00 Dyspnea, unspecified (principal)
CPT/HCPCS: 71020

== ENCOUNTER → 2017-08-01 | Outpatient (CLI) | payer BC, OTHER ==
--- NOTE | 2017-08-01 16:23 | KCIC ---
Indication: Chronic cough. Axial imaging through the chest was performed without intravenous contrast. One or more of the following individualized dose reduction techniques were utilized for this examination: 1. Automated exposure control 2. Adjustment of the mA and/or kV according to patient size 3. Use of iterative reconstruction technique Correlation is made with chest radiograph from 06/20/2017. No axillary lymphadenopathy is seen. Hilar and mediastinal evaluation is limited without intravenous contrast. No pericardial or pleural fluid is identified. The central airways are unremarkable. Parenchymal evaluation demonstrates the lungs to be free of acute infiltrates. There is some minimal linear scarring or atelectasis in the lingula. There are old healed left anterior fourth and fifth rib fractures. The upper abdomen is unremarkable. IMPRESSION: Essentially unremarkable noncontrast CT of the chest. Electronically signed by: Efrain Escalante MD (08/01/2017 4:20 PM) [id number]
== END | disposition home or self-care (01) ==
LOC: KCIC CT 15:50
PROVIDERS: ATTEND Family Medicine
DX: R05 Cough (principal)
CPT/HCPCS: 71250

== ENCOUNTER → 2017-08-09 | Outpatient (CLI) | payer BC, OTHER ==
--- NOTE | 2017-08-09 10:56 | CARD ---
APPROVED REPORT EXAM: Two-dimensional and M-mode echocardiogram with Doppler and color Doppler. Other Information Quality : GoodHR: 96bpm Rhythm : NSR INDICATION Dyspnea Fatigue Cardiomyopathy LV Function: Post cardiomyopathy, SOA RISK FACTORS Hypertension Obesity 2D DIMENSIONS RVDd2.8 (2.9-3.5cm)Left Atrium(2D)4.6 (1.6-4.0cm) IVSd1.3 (0.7-1.1cm)Aortic Root(2D)2.8 (2.0-3.7cm) LVDd5.2 (3.9-5.9cm)LVOT Diameter2.3 (1.8-2.4cm) PWd1.3 (0.7-1.1cm)LVDs4.2 (2.5-4.0cm) FS (%) 18.5 %SV49.0 ml LVEF(%)38.0 (>50%) Aortic Valve AoV Peak Jasen.132.8cm/sAoV VTI24.6cm AO Peak GR.7.1mmHgLVOT Peak Jasen.94.4cm/s AO Mean GR.4mmHgAVA (VMAX)2.96cm2 Mitral Valve MV E Jbrghobb581.1cm/sMV E Peak Gr.8mmHg MV DECEL [id number] A Scxewykf38.7cm/s MV E Mean Gr.4mmHgE/A Ratio2.8 MV A [id number] Pulmonary Valve PV Peak Cofhctzq79.3cm/s Pulmonary Vein S1 Piewurmz96.6cm/sD2 Mmrvucia97.2cm/s PVa [id number] LEFT VENTRICLE The left ventricle is normal size. There is moderate concentric left ventricular hypertrophy. Left ve ntricle systolic function is moderately impaired. The Ejection Fraction is 38 %. There is moderate gl obal hypokinesis of the left ventricle. Transmitral Doppler flow pattern is Grade II-pseudonormal quinten ling dynamics. No left ventricle thrombus noted on this study. RIGHT VENTRICLE The right ventricle is normal size. There is normal right ventricular wall thickness. The right ventr icular systolic function is normal. ATRIA The left atrium is moderately dilated. The right atrium size is normal. The interatrial septum is int act with no evidence for an atrial septal defect or patent foramen ovale as noted on 2-D or Doppler i maging. AORTIC VALVE The aortic valve is trileaflet. Doppler and Color Flow revealed trace aortic regurgitation. There is no significant aortic valvular stenosis. MITRAL VALVE There is no evidence of mitral valve prolapse. There is no mitral valve stenosis. Doppler and Color F low revealed mild mitral regurgitation. TRICUSPID VALVE Insufficient tricuspid regurgitation, unable to determine pulmonary artery pressure at exam time. PULMONIC VALVE The pulmonary valve is not well visualized but appears to open adequately. Doppler and Color Flow rev ealed no pulmonic valvular regurgitation. GREAT VESSELS The aortic root is normal in size. The ascending aorta is normal in size. The pulmonary artery is nor mal. The IVC is normal in size and collapses >50% with inspiration. PERICARDIAL EFFUSION There is a trace loculated posterior pericardial effusion. Critical Notification Critical Value: No <Conclusion> Left ventricle systolic function is moderately impaired. The Ejection Fraction is 38 %. Transmitral Doppler flow pattern is Grade II-pseudonormal filling dynamics. There is moderate concentric left ventricular hypertrophy. The left atrium is moderately dilated. The right atrium size is normal. Doppler and Color Flow revealed trace aortic regurgitation. Doppler and Color Flow revealed mild mitral regurgitation. Insufficient tricuspid regurgitation, unable to determine pulmonary artery pressure at exam time. The pulmonary valve is not well visualized but appears to open adequately. Doppler and Color Flow revealed no pulmonic valvular regurgitation. There is a trace loculated posterior pericardial effusion.
== END | disposition home or self-care (01) ==
LOC: ECHO 08:33
PROVIDERS: ATTEND Internal Medicine Cardiovascular Disease
DX: O90.3 Peripartum cardiomyopathy (principal); I10 Essential (primary) hypertension; E11.9 Type 2 diabetes mellitus without complications; I31.3 Pericardial effusion (noninflammatory); I34.0 Nonrheumatic mitral (valve) insufficiency; I42.9 Cardiomyopathy, unspecified; E66.9 Obesity, unspecified; R06.00 Dyspnea, unspecified; R06.02 Shortness of breath; Z79.4 Long term (current) use of insulin
CPT/HCPCS: 93306

== ENCOUNTER → 2017-08-18 | Outpatient (CLI) | payer BC | END | disposition home or self-care (01) | LOC: LAB 12:00 | PROVIDERS: ATTEND Internal Medicine Pulmonary Disease | DX: R06.00 Dyspnea, unspecified (principal) | CPT/HCPCS: 36415; 83880 ==

== ENCOUNTER → 2017-11-14 | Outpatient (CLI) | payer BC ==
--- NOTE | 2017-11-15 15:25 | SLEEP ---
DATE OF STUDY: 11/14/2017 ATTENDING PHYSICIAN: Dr. Aaron Wang. REFERRING PHYSICIAN: Dr. Binu Glover. The patient is a 37-year-old who weighs 204 pounds with a BMI of 33. The patient's Isabel score was 8. Sleep study was performed at [facility]. This was a diagnostic study. During the night study, the patient spent 424 minutes in bed and slept for 372 minutes with a sleep efficiency of 88%. Sleep latency was 4 minutes, with a REM latency of 129 minutes. Overall, sleep architecture showed normal stage 1 sleep, increased stage 2 sleep, normal slow wave and reduced REM sleep. During the night study, the patient had 16 obstructive apneas, 8 mixed apneas and no central apneas. There were 35 hypopneas. The patient's apnea hypopnea index was 10 per hour, supine index 13 per hour and a REM index of 57 per hour. EKG monitoring revealed normal sinus rhythm, average heart rate was 79 beats per minute, no sustained arrhythmias were observed. Review of nocturnal oximetry study revealed a mean oxygen saturation of 98%, the lowest of 85% 3% of time oxygen saturation remained between 80% and 89% and was predominantly during REM sleep. PLMS were seen at index of 1 per hour and none caused EEG arousals. Due to low AHI, the patient did not meet the split night criteria for CPAP initiation. IMPRESSION: 1. Mild sleep apnea-hypopnea syndrome with worsening during REM sleep. Total AHI 10 per hour, with a REM AHI of 57 per hour. 2. Mild nocturnal hypoxia, predominantly seen during REM sleep. 3. No clinically significant PLMS. RECOMMENDATIONS: 1. The patient has a mild BRYANT, with worsening in REM sleep. If the patient is clinically symptomatic, then consider treatment with either oral appliance as recommended by the dentist or a trial of CPAP titration. 2. Weight loss is strongly advised. 3. Avoid [employer] depressants. 4. Caution regarding driving until the patient's hypersomnia is resolved and sleep apnea is treated with above recommendations. NICA ROBBINS MD DR: JONATHAN/june JOB#: [id number] / [id number] BINU GLOVER MD, TERRY MD
== END | disposition home or self-care (01) ==
LOC: SLPLAB 17:55
PROVIDERS: ATTEND Internal Medicine Pulmonary Disease
DX: G47.33 Obstructive sleep apnea (adult) (pediatric) (principal); R06.00 Dyspnea, unspecified
CPT/HCPCS: 95810

== ENCOUNTER → 2019-02-12 | Outpatient (CLI) | payer BC ==
[~2019-02-12] MED LIST changes: -LABE200T2 PO; +LABE200T4 PO
--- NOTE | 2019-02-12 14:39 | RAD ---
Left shoulder, 3 views, 02/12/2019: HISTORY: Shoulder pain after a fall There is an old healed proximal humeral fracture. No acute fracture or dislocation is identified. The periarticular soft tissues are unremarkable. IMPRESSION: No acute bony abnormality is detected. Electronically signed by: Rmoan Brasher MD (02/12/2019 2:36 PM) [facility]
== END | disposition home or self-care (01) ==
LOC: RAD 13:53
PROVIDERS: ATTEND Internal Medicine
DX: M25.512 Pain in left shoulder (principal); W19.XXXA Unspecified fall, initial encounter; Y93.89 Activity, other specified; Y92.89 Other specified places as the place of occurrence of the external cause; Y99.8 Other external cause status
CPT/HCPCS: 73030

== ENCOUNTER → 2021-06-24 | Outpatient (CLI) | payer BC, MEDICAID ==
[~2021-06-24] MED LIST changes: -NIFE30TA17 PO; +NIFE30TA95 PO; +POTA20TA4 PO; -POTA20TA82 PO
--- NOTE | 2021-06-24 08:42 | KCIC ---
EXAMINATION: US DPLX VENOUS EXTREMITY LOWER LT (LOWER EXTREMITY VENOUS ULTRASOUND) CLINICAL HISTORY: Left lower extremity edema TECHNIQUE: Sonographic grayscale images obtained of the left lower extremity deep venous system with color flow Doppler, compression, and augmentation techniques as indicated. Images obtained and store d in a permanent archive. COMPARISON: None FINDINGS: No evidence of absent flow or incompressibility within the common femoral vein, femoral vein, or popl iteal vein. Visualized calf veins appear patent on limited evaluation. IMPRESSION: No evidence of left lower extremity DVT. Electronically signed by: Rey Eckert DO (06/24/2021 8:40 AM) [id number]
== END ==
LOC: KCIC US 08:06
PROVIDERS: ATTEND Internal Medicine
DX: M79.89 Other specified soft tissue disorders (principal)
CPT/HCPCS: 93971

== ENCOUNTER → 2021-06-30 | Outpatient (CLI) | payer BC, MEDICAID ==
--- NOTE | 2021-06-30 14:16 | RAD ---
EXAM: 1. BILATERAL DIGITAL DIAGNOSTIC MAMMOGRAPHY. 2. RIGHT BREAST ULTRASOUND. HISTORY: Palpable focus right superior breast. TECHNIQUE: Bilateral full field digital images were obtained in CC and MLO projections. Computer-aide d detection was applied. Sonography of the right superior breast was also performed. COMPARISON: None available. This is interpreted as a baseline study. COMPOSITION: B. There are scattered areas of fibroglandular density. FINDINGS: In the region of the site of palpable concern superiorly, there is no clear mammographic ab normality. There are small asymmetric nodular densities at the right 1:00-11:00 positions. Sonography at this site reveals multiple small complicated cysts that measure up to 5 x 5 mm at the 1:00 positi on 6 cm from the nipple. A hypoechoic focus of measuring 6 mm at the 11:30 position 10 cm from the ni pple has a hyperechoic halo and suggests fat necrosis. Regions of ill-defined hyperechogenicity withi n the fat also suggest fat necrosis or ecchymosis. There is a 6 mm simple cyst at the 12:00 position 9 cm from the nipple. Images of the right axilla reveal no suspicious lymph nodes. Scattered calcifications are benign. There are no suspicious findings on the left. BI-RADS CATEGORY 3: Probably Benign. RECOMMENDATION: 1. A hypoechoic nodule at the right 11:30 position suggests mild fat necrosis. Small adjacent complic ated cyst may also reflect fat necrosis. These can be followed sonographically in 6 months to confirm stability at baseline. Electronically signed by: Yusuf Joseph MD (06/30/2021 2:14 PM) [id number]
== END ==
LOC: US 08:00
PROVIDERS: ATTEND Internal Medicine
DX: N63.11 Unspecified lump in the right breast, upper outer quadrant (principal); N60.01 Solitary cyst of right breast
CPT/HCPCS: 76641; 77066

== ENCOUNTER → 2021-10-27 | Outpatient (CLI) | payer OTHER, MEDICAID ==
[~2021-10-27] VITALS: Ht 167.6 cm; Wt 86.2 kg
--- NOTE | 2021-10-27 13:40 | NUR ---
Dr. Teran notified that patient's blood pressure went to 237/112, stopped infusion per Dobutamine protocol. Patient did not reach max heart rate, patient stated she had no chest pain or shortness of air. IV discontinued and EKG leads removed.
--- NOTE | 2021-10-28 11:36 | CARD ---
MR#: [id number] Date of Study: 10/27/2021 Ordering Physician: DINA VALERO, Referring Physician: DINA VALERO, Tech: Sandy Sow, [facility] APPROVED REPORT INDICATION Dyspnea Chest Pain RISK FACTORS Hypertension Reason : Patient complained of pain PROCEDURE The patient underwent a Pharmacological Stress Test using Dobutamine. Blood pressure, heart rate, and EKG were monitored. An Echocardiogram was performed by nail technician in four stages in quad fashion. At peak stress four se lected images were obtained and placed side by side with resting images for comparison. STRESS ECHO FINDINGS The resting Echocardiogram showed normal left ventricular systolic contractility with an estimated Ej ection Fraction of about 55 %. The Resting Echocardiogram showed normal augmentation of myocardial wall segments using a 16 segment model. The Stress Echocardiogram showed normal augmentation of myocardial wall segments using a 16 segment m daivon. The Stress Echocardiogram left ventricular systolic contractility has an estimated Ejection Fraction of about 65%. Test Type: Pharmacological Stress Nurse/Tech: Mena Sepulveda RN Test Indications: Chest pain and shortness of air Cardiac History and Allergies: Hypertension, Diabetes, stroke (patient unable to walk on treadmill d ue to using cane for ambulatory assistance) Medications: see EMR Medical History: see EMR Resting ECG: SR with occasional PVC's Resting Heart Rate: 63 bpm Resting Blood Pressure: 162/86mmHg Pretest Chest Pain: No chest pain Nurse/Tech Notes S1,S2 and lungs clear to auscultation. Procedure explained to patient and IV access obtained in order to administer Dobutamine infusion. Dr. Valero confirmed that Atropine would not be used if patient didn't reach target heart rate. Stress Symptoms Patient stated that she had no chest pain during study but could feel her heart racing. Patient's hea rt rate only got to 100 bpm and infusion had to be stopped because blood pressure went up to 237/112 at 20mcg/kg/min infusion rate. Dr. Valero was notified. Patient was recovered for 6 minutes after s topping infusion, blood pressures= 219/105,208/95,180/93,172/90,161/92, and 165/86. Patient stated sh e had no chest pain or shortness of air at end of study. IV discontinued and EKG leads removed. POST EXERCISE Reason for Termination: Infusion stopped because blood pressure became too high per Dobutamine infusi on protocol (SBP >200, discontinue drip) Target HR: No Max HR: 172 bpm Max Blood Pressure: 237/112mmHg Chest Pain: No. Arrhythmia: Yes. PVC's ST Change: No. INTERPRETATION Stress EKG Conclusion: No evidence of stress induced EKG changes. STRESS ECG Stress EKG shows no significant changes. RECOMMENDATIONS Consider alternative testing as clinically indicated. Preliminary Notification Critical Value: No <Conclusion> Normal resting EKG. No evidence of stress-induced ischemic EKG changes. Normal resting wall motion and ejection fraction of 55% Stress images were obtained at less than 85% of age-predicted maximal heart rate. Dobutamine infusio n had to be terminated due to hypertension. Nondiagnostic stress images but grossly no evidence of w all motion abnormalities at submaximal stress. Signed by : Jeremiah Kwong, Electronically Approved : 10/28/2021 11:35:52
--- NOTE | 2021-10-28 11:38 | CARD ---
MR#: [id number] Date of Study: 10/27/2021 Ordering Physician: DINA VALERO, Referring Physician: DINA VALERO, Tech: Junie Juanjose, [facility] APPROVED REPORT EXAM: Two-dimensional and M-mode echocardiogram with Doppler and color Doppler. Other Information Quality : AverageHR: 70bpm INDICATION Chest Pain 2D DIMENSIONS Left Atrium(2D)3.7 (1.6-4.0cm)IVSd1.2 (0.7-1.1cm) Aortic Root(2D)2.7 (2.0-3.7cm)LVDd4.8 (3.9-5.9cm) LVOT Diameter2.0 (1.8-2.4cm)PWd1.1 (0.7-1.1cm) LVDs3.2 (2.5-4.0cm)FS (%) 34.9 % SV70.5 mlLVEF(%)64.0 (>50%) Aortic Valve AoV Peak Jasen.172.8cm/sAoV VTI39.9cm AO Peak GR.11.9mmHgLVOT Peak Jasen.126.1cm/s AO Mean GR.7mmHgAVA (VMAX)2.25cm2 Mitral Valve MV E Obzljxkk08.2cm/sMV E Peak Gr.4mmHg MV DECEL [id number] A Uazfmlsp02.8cm/s MV E Mean Gr.2mmHgE/A Ratio1.4 Pulmonary Valve PV Peak Ztgqivks75.3cm/s Pulmonary Vein S1 Vhackpqm83.0cm/sD2 Flcryupc14.5cm/s LEFT VENTRICLE The left ventricle is normal size. There is mild concentric left ventricular hypertrophy. The left ve ntricular systolic function is normal and the ejection fraction is within normal range. The Ejection Fraction is 55-60%. There is normal LV segmental wall motion. Tissue Doppler imaging reveals moderate left ventricular diastolic dysfunction. RIGHT VENTRICLE The right ventricle is normal size. There is normal right ventricular wall thickness. The right ventr icular systolic function is normal. ATRIA The left atrium size is normal. The right atrium size is normal. The interatrial septum is intact wit h no evidence for an atrial septal defect or patent foramen ovale as noted on 2-D or Doppler imaging. AORTIC VALVE The aortic valve is normal in structure and function. Doppler and Color Flow revealed no significant aortic regurgitation. There is no significant aortic valvular stenosis. MITRAL VALVE The mitral valve is normal in structure and function. There is no evidence of mitral valve prolapse. There is no mitral valve stenosis. Doppler and Color-flow revealed trace mitral regurgitation. TRICUSPID VALVE The tricuspid valve is normal in structure and function. Doppler and Color Flow revealed no tricuspid valve regurgitation noted. There is no tricuspid valve stenosis. PULMONIC VALVE The pulmonic valve is not well visualized. Doppler and Color Flow revealed trace pulmonic valvular re gurgitation. There is no pulmonic valvular stenosis. GREAT VESSELS The aortic root is normal in size. The IVC is normal in size and collapses >50% with inspiration. PERICARDIAL EFFUSION There is no evidence of significant pericardial effusion. Critical Notification Critical Value: No <Conclusion> The left ventricular systolic function is normal and the ejection fraction is within normal range. Th e Ejection Fraction is 55-60%. There is normal LV segmental wall motion. Signed by : Jeremiah Kwong, Electronically Approved : 10/28/2021 11:37:45
== END ==
LOC: ECHO 12:10
PROVIDERS: ATTEND Internal Medicine Cardiovascular Disease
DX: I51.7 Cardiomegaly (principal); R07.9 Chest pain, unspecified; R06.02 Shortness of breath; R06.00 Dyspnea, unspecified
CPT/HCPCS: 93017; 93306; 93350; J1250

== ENCOUNTER → 2021-12-29 | Outpatient (CLI) | payer OTHER, MEDICAID ==
--- NOTE | 2021-12-29 10:33 | RAD ---
EXAM: Right breast sonogram. HISTORY: 41-year-old female presents for follow-up evaluation of findings within the right breast dem onstrated on a sonogram dated 06/30/2021. TECHNIQUE: Sonographic imaging of the right breast targeted to sites of prior findings was performed. COMPARISON: 06/30/2021. FINDINGS: There is a stable round hypoechoic lesion with eccentric echogenic focus within the 1:00 po sition 6 cm from nipple measuring 6 mm in maximum dimension. There is an elongated hypoechoic lesion with surrounding increased echogenicity within the 6:00 position 9 cm from the nipple measuring 8 mm in maximum dimension, without a convincing correlate on the prior exam. There is a stable oval hypoec hoic lesion at the 11:30 position 10 cm from the nipple measuring 6 mm. The previously demonstrated l esion at the 12:00 position 9 cm for the nipple is no longer seen. There is no suspicious axillary ly mph node. IMPRESSION: 1. Stable 6 mm suspected focus of fat necrosis within the 1:00 position 6 cm from the nipple and stab le 6 mm suspected benign complicated cyst or fibroadenomatoid lesion at the 11:30 position 10 cm from the nipple. 2. 8 mm elongated hypoechoic lesion with surrounding echogenicity within the 6:00 position 9 cm from the nipple, the morphology of which favors a benign etiology such as fat necrosis or focally dilated duct or complicated cyst. 3. BI-RADS Category 3: Probably benign finding(s). Repeat short-term term follow up with a left breas t sonogram in 6 months is recommended to confirm stability and correspond with the previously establi shed bilateral mammography interval. Electronically signed by: Martha Molina MD (12/29/2021 10:30 AM) [id number]
== END ==
LOC: US 10:04
PROVIDERS: ATTEND Internal Medicine
DX: N64.89 Other specified disorders of breast (principal)
CPT/HCPCS: 76641